=== PATIENT | female | born 1940 | race Caucasian/White ===

== ENCOUNTER 2016-02-11 08:14 | Inpatient (IN) | payer OTHER, BC ==
[~2016-02-11] VITALS: Ht 162.6 cm; Wt 69.4 kg
[~2016-02-11 08:14] MED LIST: ATOR-22 PO; CIPR-255 PO; DILT-115 PO; FURO-85 PO; GABA-112 PO; HYDR-5688 PO; INSUINJ12 SC; INSUINJ14 SC; LEVO88TA3 PO; VTMD PO
[2016-02-11] MEDS ORDERED: SODIUM CHLORIDE 0.9% 1000ML 1,000 ML IV STA (08:35)
[2016-02-11] MEDS ORDERED: ACETAMINOPHEN 500 MG TAB PO STA (08:35)
--- NOTE | 2016-02-11 09:33 | DIAGNOSTIC IMAGING REPORT ---
CT HEAD WITHOUT CONTRAST (CT) CLINICAL HISTORY: Head trauma. New onset weakness. COMPARISON STUDY: No previous studies for comparison. TECHNIQUE: Axial CT of the brain is performed from the vertex to the skull base. IV contrast was not administered for this examination. CT DOSE: 810.83 mGy.cm FINDINGS: No intra or extra-axial mass lesions are visualized. There is no CT evidence of acute cortical infarction. There is no evidence of midline shift. There is no acute hemorrhage. No calvarial fractures are visualized. There are minor white matter hypodensities likely on a small vessel basis. There is no evidence of pathologic ventricular dilatation. There is no evidence of acute sinusitis. Postsurgical changes involve the right globe. There is right maxillary sinus and ethmoid sinus mucosal thickening. IMPRESSION: No acute intracranial findings Electronically signed by: Barrera Romero M.D. 02/11/2016 9:31 AM
[2016-02-11 09:34] LABS: BASO % 0.4 %; BASO ABS # 0.04 K/uL (0-0.2); COMPLETE YES; IG% 0.5 %; LYMPH % 9.6 %; LYMPH ABS # 0.91 K/uL (1.2-3.4); MEAN CORPUSCULAR HEMOGLOBIN 29.5 pg (25-34); MEAN CORPUSCULAR HGB CONC 33.9 g/dl (32-36); MEAN PLATELET VOLUME 10.5 fL (7.4-10.4); MONO % 18.6 %; NEUT % 70.9 %; PLATELET COUNT 194 K/uL (130-400); RED BLOOD COUNT 4.71 M/uL (4.2-5.4); WHITE BLOOD COUNT 9.51 K/uL (4.8-10.8)
[2016-02-11 10:02] LABS: BUN/CREATININE RATIO 17.7 (10-20); CALCIUM 9.2 mg/dl (8.5-10.1); CREATININE 1.6 mg/dl (0.60-1.20); POTASSIUM 3.9 mmol/L (3.5-5.1)
[2016-02-11] MEDS ORDERED: GABA-113 PO (10:02)
[2016-02-11] MEDS ORDERED: LEVO75TA5 PO (10:04)
--- NOTE | 2016-02-11 10:08 | DIAGNOSTIC IMAGING REPORT ---
CHEST ONE VIEW PORTABLE CLINICAL HISTORY: Cough, hypoxia. COMPARISON STUDY: 09/06/2014 FINDINGS: The heart is enlarged. Surgical clips project over the left axillary region. There is no lobar consolidation. There is displaced right fourth rib fracture. No pneumothorax is visualized. There is interstitial thickening with a basilar predominance.[ IMPRESSION: 1. Nonspecific interstitial thickening with a basilar predominance 2. No evidence of lobar consolidation 3. Right fourth rib fracture. No evidence of pneumothorax. Electronically signed by: Barrera Romero M.D. 02/11/2016 10:06 AM
[2016-02-11 10:20] LABS: ALB/GLOB RATIO 0.9 (0.9-2); CKMB/CK RATIO 0.4 (0-3.0); MAGNESIUM 2.1 mg/dl (1.8-2.4); THYROID STIMULATING HORMONE 0.174 uIu/ml (0.300-4.500)
[2016-02-11 10:26] LABS: URINE APPEARANCE CLOUDY (CLEAR); URINE BILIRUBIN NEG (NEG); URINE COLOR YELLOW; URINE NITRITE POS (NEG); URINE SPECIFIC GRAVITY 1.013 (1.000-1.030); UROBILINOGEN NEG (NEG)
[2016-02-11 10:28] LABS: MANUAL MICROSCOPIC REQUIRED? NO; REVIEW REQ? NO
--- NOTE | 2016-02-11 10:37 | EMERGENCY ROOM VISIT NOTE ---
ED Visit Note First contact with patient: 08:17 I have personally seen and evaluated the patient with the physician senior executive assistant. I agree with the diagnostic/management decisions and have personally been involved in these decisions and agree with the diagnosis.
[2016-02-11] MEDS ORDERED: LEVAQUIN 500MG / 100ML D5W IV ONE (10:45)
--- NOTE | 2016-02-11 11:53 | EMERGENCY ROOM VISIT NOTE ---
History First contact with patient: 08:17 Chief Complaint: FALL Stated Complaint: FALL/ EVAL. NO TRAUMA History of Present Illness Patient is a 75-year-old white female brought to the emergency department by [facility] ambulance for evaluation of a fall at home this morning. She is difficult to obtain a clear history from. Patient reports that she was trying to get up without her walker when she was getting out of bed this morning and she fell down to the ground. She denies that she injured herself. She was on the ground for about an hour before EMS was summoned. She has no complaints of pain and does not believe that she hurt herself when she fell. Her complaint is that her right leg has been swollen for the last couple of weeks. She has had a intermittent, dry, nonproductive cough. She denies any cold or upper respiratory symptoms, fever or chills. She denies any nausea, vomiting, diarrhea or abdominal pain. She has chronic urinary incontinence, and does note increased urinary frequency. She apparently also had a fall yesterday, she states again she lost her balance while trying to move around her home. EMS was summoned and helped her at the scene, but she refused treatment or transport at that time. She denies any headache, lightheadedness or dizziness. No back, neck or chest pain. She denies any palpitations. She was seen here last month after a fall, and found to have a UTI which was treated with Cipro. She grew Escherichia coli at that time. Review of Systems Review of systems as per HPI. All other systems reviewed were negative. 10 systems reviewed. Past Medical/Surgical History Medical Problems: (1) Diabetes (2) Fall (3) Hyperlipidemia, Unspecified (4) Hypertension (5) Hypothyroidism Nos (6) Left leg pain (7) Leg pain, left (8) Lumbar degenerative disc disease (9) Medication withdrawal (10) Rhabdomyolysis (11) Right rib fracture (12) UTI (urinary tract infection) Surgical Problems: (1) History of breast cancer (2) History of lumbar fusion (3) History of mastectomy Electronic medical records are reviewed and summarized as above/below. See Problem List. Family History Cancer Diabetes mellitus Heart disease Hypertension Kidney stones Social History Smoking Status: Never Smoker Alcohol Use: none Drug Use: none Marital Status: Occupation Status: retired Current/Historical Medications Scheduled Atorvastatin (Lipitor), 20 MG PO QPM Diltiazem Hcl Ext Rel (Tiazac), 240 MG PO QAM Ergocalciferol (Vitamin D), 50,000 INTER.UNIT PO MONTHLY Gabapentin (Neurontin), 300 MG PO TID Insulin Aspart Penfill (Novolog Penfill), 2 UNITS SC UD Insulin Detmir (Levemir), 12 UNITS SC QAM Levothyroxine Sodium (Levothyroxine Sodium), 88 MCG PO DAILY Levothyroxine Sodium (Levothyroxine Sodium), 75 MCG PO DAILY Scheduled PRN Furosemide (Lasix), 20 MG PO QAM PRN for EDEMA Hydrocodone/Acetaminophen 5MG/325MG (Ragan 5MG/325MG), 1-2 TABS PO Q6H PRN for Pain Allergies Coded Allergies: Penicillins (Verified Adverse Reaction, Unknown, PT CLAIMS PCN DOESN'T WORK, 12/27/15) PT CLAIMS SHE HAS BUILT UP RESISTANCE TO PCN - IT "DOESN'T WORK" Physical Exam Vital Signs Date Time Temp Pulse Resp B/P Pulse Ox O2 Delivery O2 Flow Rate FiO2 02/11/16 14:45 100 Nasal Cannula 3.0 02/11/16 13:40 63 16 130/66 100 Room Air 02/11/16 11:34 89 Room Air 02/11/16 11:33 89 Room Air 02/11/16 10:50 74 20 138/79 98 Nasal Cannula 3.0 02/11/16 09:56 37.1 80 22 122/61 98 Nasal Cannula 3.0 02/11/16 08:52 83 20 152/79 93 Nasal Cannula 3.0 02/11/16 08:32 90 02/11/16 08:27 94 Nasal Cannula 3.0 02/11/16 08:27 94 Nasal Cannula 3.0 02/11/16 08:26 38.2 97 20 157/84 86 Room Air Physical Exam CONSTITUTIONAL: Patient is a slightly disheveled appearing 75-year-old white female who is awake and alert and in no acute distress. She is examined immediately upon arrival in the room B 12. She was assisted into a gown and out of a saturated Depends by the nursing staff. Urine was very foul-smelling. She was noted to be febrile with a temperature of 38.2C orally, and hypoxic with an oxygen saturation between 84 and 86% on room air. She responded nicely to 2 L by nasal cannula. She was normotensive. She was not tachycardic. She is otherwise in no acute distress with no increased work of breathing. HEAD: Normocephalic, no signs of injury or scalp lesions. EYES: Pupils equal, round, reactive to light and accommodation. EOMs intact without nystagmus. Sclera are anicteric. ENT: Tympanic membranes intact, with normal landmarks. External canals are clear. Hearing. Oral and nasopharynx are clear. Mucous membranes are moist, no lesions, tongue and gums appear normal. NECK: No bruits auscultated. Supple without lymphadenopathy. No thyromegaly. No meningeal signs. Full active range of motion without discomfort. CARDIOVASCULAR: Regular rate and rhythm, systolic ejection murmur noted. No carotid bruits auscultated. No JVD. Peripheral pulses easy to palpable. RESPIRATORY: Breath sounds equal and clear to auscultation without wheezes, rales, or rhonchi heard. Full and equal chest expansion without accessory muscle use or retractions. Well-healed surgical scars breast. GI: Bowel sounds are present. Multiple well-healed surgical scars. Abdomen is soft, nontender, nondistended. No organomegaly. No pulsatile masses. No guarding or rebound. MUSCULOSKELETAL: Pelvis is stable to rock and compression. Full range of motion of extremities x 4 with good strength. No cyanosis, edema, joint tenderness or swelling. No deformity. INTEGUMENTARY: No lesions or rash, normal skin turgor. NEUROLOGICAL: Alert, oriented, and cooperative. Cranial nerves, sensation and strength grossly intact. Gait is unable to be assessed. LYMPH: No lymphadenopathy. Medical Decision & Procedures ER Provider Diagnostic Interpretation: CHEST ONE VIEW PORTABLE CLINICAL HISTORY: Cough, hypoxia. COMPARISON STUDY: 09/06/2014 FINDINGS: The heart is enlarged. Surgical clips project over the left axillary region. There is no lobar consolidation. There is displaced right fourth rib fracture. No pneumothorax is visualized. There is interstitial thickening with a basilar predominance.[ IMPRESSION: 1. Nonspecific interstitial thickening with a basilar predominance 2. No evidence of lobar consolidation 3. Right fourth rib fracture. No evidence of pneumothorax. CT HEAD WITHOUT CONTRAST (CT) CLINICAL HISTORY: Head trauma. New onset weakness. COMPARISON STUDY: No previous studies for comparison. TECHNIQUE: Axial CT of the brain is performed from the vertex to the skull base. IV contrast was not administered for this examination. CT DOSE: 810.83 mGy.cm FINDINGS: No intra or extra-axial mass lesions are visualized. There is no CT evidence of acute cortical infarction. There is no evidence of midline shift. There is no acute hemorrhage. No calvarial fractures are visualized. There are minor white matter hypodensities likely on a small vessel basis. There is no evidence of pathologic ventricular dilatation. There is no evidence of acute sinusitis. Postsurgical changes involve the right globe. There is right maxillary sinus and ethmoid sinus mucosal thickening. IMPRESSION: No acute intracranial findings Laboratory Results 02/11/16 09:00 Red Blood Count 4.71, Mean Corpuscular Volume 87.0, Mean Corpuscular Hemoglobin 29.5, Mean Corpuscular Hemoglobin Concent 33.9, Mean Platelet Volume 10.5, Neutrophils (%) (Auto) 70.9, Lymphocytes (%) (Auto) 9.6, Monocytes (%) (Auto) 18.6, Eosinophils (%) (Auto) 0.0, Basophils (%) (Auto) 0.4, Neutrophils # (Auto ) 6.74, Lymphocytes # (Auto) 0.91, Monocytes # (Auto) 1.77, Eosinophils # (Auto ) 0.00, Basophils # (Auto) 0.04 02/11/16 09:00 Test 02/11/16 08:40 02/11/16 09:00 02/11/16 09:09 02/11/16 10:50 Urine Color YELLOW Urine Appearance CLOUDY (CLEAR) Urine pH 6.0 (4.5-7.5) Urine Specific [place] 1.013 (1.000-1.030) Urine Protein 1+ (NEG) Urine Glucose (UA) NEG (NEG) Urine Ketones NEG (NEG) Urine Occult Blood 1+ (NEG) Urine Nitrite POS (NEG) Urine Bilirubin NEG (NEG) Urine Urobilinogen NEG (NEG) Urine Leukocyte Esterase LARGE (NEG) Urine WBC (Auto) >30 /hpf (0-5) Urine RBC (Auto) 0-4 /hpf (0-4) Urine Hyaline Casts (Auto) 1-5 /lpf (0-5) Urine Epithelial Cells (Auto) 5-10 /lpf (0-5) Urine Bacteria (Auto) 4+ (NEG) White Blood Count 9.51 K/uL (4.8-10.8) Red Blood Count 4.71 M/uL (4.2-5.4) Hemoglobin 13.9 g/dL (12.0-16.0) Hematocrit 41.0 % (37-47) Mean Corpuscular Volume 87.0 fL (80-100) Mean Corpuscular Hemoglobin 29.5 pg (25-34) Mean Corpuscular Hemoglobin Concent 33.9 g/dl (32-36) Platelet Count 194 K/uL (130-400) Mean Platelet Volume 10.5 fL (7.4-10.4) Neutrophils (%) (Auto) 70.9 % Lymphocytes (%) (Auto) 9.6 % Monocytes (%) (Auto) 18.6 % Eosinophils (%) (Auto) 0.0 % Basophils (%) (Auto) 0.4 % Neutrophils # (Auto) 6.74 K/uL (1.4-6.5) Lymphocytes # (Auto) 0.91 K/uL (1.2-3.4) Monocytes # (Auto) 1.77 K/uL (0.11-0.59) Eosinophils # (Auto) 0.00 K/uL (0-0.5) Basophils # (Auto) 0.04 K/uL (0-0.2) RDW Standard Deviation 45.7 fL (36.4-46.3) RDW Coefficient of Variation 14.3 % (11.5-14.5) Immature Granulocyte % (Auto) 0.5 % Immature Granulocyte # (Auto) 0.05 K/uL (0.00-0.02) Anion Gap 9.0 mmol/L (3-11) Est Creatinine Clear Calc Drug Dose 29.1 ml/min Estimated GFR () 36.2 Estimated GFR (Non- 31.2 BUN/Creatinine Ratio 17.7 (10-20) Calcium Level 9.2 mg/dl (8.5-10.1) Magnesium Level 2.1 mg/dl (1.8-2.4) Total Bilirubin 0.9 mg/dl (0.2-1) Aspartate Amino Transf (AST/SGOT) 63 U/L (15-37) Alanine Aminotransferase (ALT/SGPT) 31 U/L (12-78) Alkaline Phosphatase 106 U/L (45-117) Total Creatine Kinase 1446 U/L (26-192) Creatine Kinase MB 6.2 ng/ml (0.5-3.6) Creatine Kinase MB Ratio 0.4 (0-3.0) Total Protein 7.8 gm/dl (6.4-8.2) Albumin 3.7 gm/dl (3.4-5.0) Globulin 4.1 gm/dl (2.5-4.0) Albumin/Globulin Ratio 0.9 (0.9-2) Thyroid Stimulating Hormone (TSH) 0.174 uIu/ml (0.300-4.500) Bedside Lactic Acid Venous 1.04 mmol/L (0.90-1.70) Influenza Type A Antigen POS for Influ A (NEG) Influenza Type B Antigen Neg for Influ B (NEG) Medications Administered Medications (Trade) Dose Ordered Sig/Erich Route Start Time Stop Time Status Last Admin Dose Admin Acetaminophen 1000 mg 1,000 mg NOW STAT PO 02/11/16 08:35 02/11/16 08:41 DC 02/11/16 08:50 1,000 MG Sodium Chloride (Nss 1000ml) 1,000 ml @ 125 mls/hr Q8H STAT IV 02/11/16 08:35 02/11/16 16:34 02/11/16 09:55 125 MLS/HR Levofloxacin (Levaquin / D5W) 500 mg NOW ONCE IV 02/11/16 10:45 02/11/16 10:46 DC 02/11/16 10:49 500 MG ECG Indication: weakness, other (hypoxia) Rate (beats per minute): 84 Rhythm: sinus rhythm Findings: PVC, no acute ischemic change Change: no significant change ED Course The patient was seen and assessed as above. Her old records are reviewed. She presents the emergency department with little complaints, other than lower extremity edema, however has been experiencing falls recently, and upon evaluation she was noted to be febrile and hypoxic. Exam findings were otherwise unremarkable. She is placed on a electronic device monitor, IV access was obtained and laboratory studies were collected. She was cathed for a urine sample. She was given 1 g of Tylenol orally for her low-grade fever, and gently hydrated with normal saline solution. Laboratory studies were collected including CBC with differential, mag, CMP, TSH, CK/CK-MB, [id number] BNP, troponin and lactic acid, urinalysis, urine culture and blood cultures 2. After discussion with attending physician, influenza swab was also ordered. Given the recent falls and possibility of trauma, head CT was performed, which was negative. Given the fever and hypoxia, chest x-ray was performed, which did not show any evidence for focal consolidation. For [id number] lactic acid was not elevated. Troponin was negative 1. Her BNP is not indicative of CHF. CBC did not demonstrate leukocytosis or anemia. Chemistries did not demonstrate any correctable electrolyte imbalance. She does have a slight elevation of her BUN and creatinine at 28 and 1.6 respectively, however she does have a history of chronic kidney disease, and this does appear stable compared to her most recent labs from August of this year. Urinalysis is indicative of infection with 1+ blood, positive nitrates, large amount of leukocyte esterase and WBCs and 4+ bacteria. Urine culture is ordered and is pending. Blood cultures 2 are pending. Influenza swab which was ordered later, did come back positive for influenza A. Attempts were made to wean the patient off of oxygen, but she dropped to 89% as soon as the oxygen was removed. She was ultimately requiring 3 L to stay at 100%. All laboratory and diagnostic imaging studies were reviewed with attending physician. She was given Levaquin 500 mg IV for presumed UTI, possible pyelonephritis or urosepsis. Her influenza swab was later resulted as positive , which is likely the source of her hypoxia and fever. Differential diagnoses also entertained included CVA/TIA, acute intracranial bleed, and respiratory dysfunction, electrolyte imbalance, arrhythmia, ACS, acute PR, sepsis, hypotension, hypoglycemia, orthostasis, syncope, among others. The patient was reviewed with the emergency department director case management. The patient's came to visit with her, and ultimately ended up checking himself in to be evaluated, and was admitted. There is some concern regarding the ability of these 2 patients to be able to care for themselves appropriately at home, and the director case management will be evaluating this while the couple are admitted. Please refer to the home health care case manager notes for further information. Medical Decision See ED Course. Impression Primary Impression: Influenza A Additional Impressions: UTI (urinary tract infection), Weakness, Frequent falls, Hypoxia Departure Information Referrals Prabhakar Jean M.D. (PCP) Patient Instructions A Signature Page, [facility]
[2016-02-11] MEDS ORDERED: OSELTAMIVIR PHOSPHATE 75 MG CAP PO SCH (12:30)
[2016-02-11] MEDS ORDERED: ACETAMINOPHEN 325 MG TAB PO PRN (13:15)
[2016-02-11] MEDS ORDERED: ONDANSETRON INJ 2 MG/ML 2 ML VIAL IV PRN (13:15)
[2016-02-11] MEDS ORDERED: HYDROCODONE/ACETAMOPHEN 5/325MG TAB PO PRN (13:15)
[2016-02-11 14:45] VITALS: O2SAT 100; Ht 162.6 cm; Wt 69.4 kg
[2016-02-11] MEDS ORDERED: IV FLUIDS COMPLETED PRN (14:45)
--- NOTE | 2016-02-11 16:19 | History and Physical ---
History & Physical Date & Time of Service: Feb 11, 2016 at 16:12 Chief Complaint: Fall/ Eval. No Trauma Primary Care Physician: Prabhakar Jean M.D. History of Present Illness Source: patient 75 yo female with weakness, chills and two falls today. She says she was in usual state of health until past 48 hours when she was experiencing more weakness, decreased appetite, low grade temperature. After she fell a second time her called EMS. No loss of consciousness with falls, no head trauma. No sick contacts that she knows of. She denies diarrhea, vomiting, dyspnea, cough. In the ED there were concerns of hypoxia with 89% on room air but on repeat she was 94% and in no distress and saturations were stable with ambulation. Decided to keep patient because of falls, mild rhabdomyolysis and no one at home to take care of her. Past Medical/Surgical History Medical Problems: (1) Diabetes Status: Chronic (2) Fall Status: Resolved (3) Hyperlipidemia, Unspecified Status: Chronic (4) Hypertension Status: Chronic (5) Hypothyroidism Nos Status: Chronic (6) Left leg pain Status: Resolved (7) Leg pain, left Status: Resolved (8) Lumbar degenerative disc disease Status: Chronic (9) Medication withdrawal Status: Resolved (10) Right rib fracture Status: Resolved (11) UTI (urinary tract infection) Status: Resolved Surgical Problems: (1) History of breast cancer Status: Resolved (2) History of lumbar fusion Status: Resolved (3) History of mastectomy Status: Resolved Family History Cancer Diabetes mellitus Heart disease Hypertension Kidney stones Social History Smoking Status: Never Smoker Drug Use: none Marital Status: Housing status: lives with family Occupational Status: employed Immunizations History of Influenza Vaccine: Yes Influenza Vaccine Date: Nov 26, 2010 History of Tetanus Vaccine?: Yes Tetanus Immunization Date: May 27, 2008 History of Pneumococcal: Yes Pneumococcal Date: Nov 26, 2009 History of Hepatitis B Vaccine: No Multi-Drug Resistant Organisms History of MDRO: No Allergies Coded Allergies: Penicillins (Verified Adverse Reaction, Unknown, PT CLAIMS PCN DOESN'T WORK, 12/27/15) PT CLAIMS SHE HAS BUILT UP RESISTANCE TO PCN - IT "DOESN'T WORK" Home Medications Scheduled Atorvastatin (Lipitor), 20 MG PO QPM Diltiazem Hcl Ext Rel (Tiazac), 240 MG PO QAM Ergocalciferol (Vitamin D), 50,000 INTER.UNIT PO MONTHLY Gabapentin (Neurontin), 300 MG PO TID Insulin Aspart Penfill (Novolog Penfill), 2 UNITS SC UD Insulin Detmir (Levemir), 12 UNITS SC QAM Levothyroxine Sodium (Levothyroxine Sodium), 88 MCG PO DAILY Levothyroxine Sodium (Levothyroxine Sodium), 75 MCG PO DAILY Scheduled PRN Furosemide (Lasix), 20 MG PO QAM PRN for EDEMA Hydrocodone/Acetaminophen 5MG/325MG ([place] 5MG/325MG), 1-2 TABS PO Q6H PRN for Pain Review of Systems Constitutional: + chills, + fatigue, + fever, + weakness, No sweats, No weight loss Eyes: No diplopia, No discharge, No eye pain, No problem reported, No redness, No worsening of vision ENT: No dental problems, No hearing loss, No nasal symptoms, No problem reported, No sore throat, No tinnitus, No trouble swallowing, No unusual epistaxis Respiratory: No cough, No dyspnea at rest, No dyspnea on exertion, No hemoptysis, No problem reported, No shortness of breath, No sputum, No wheezing Cardiovascular: No PND, No chest pain, No claudication, No edema, No orthopnea , No palpitations, No problem reported Abdomen: No GI bleeding, No constipation, No diarrhea, No nausea, No pain, No problem reported, No vomiting Musculoskeletal: + joint pain, No muscle pain Genitourinary - Female: + urinary incontinence, No dysuria, No urinary frequency, No urinary retention, No urinary urgency Neurologic: + balance problems, + weakness, No memory loss, No numbness/ tingling, No paralysis, No vertigo Psychiatric: No anhedonism, No anxiety, No depression symptoms, No insomnia, No problem reported, No substance abuse Endocrine: No excessive thirst, No excessive urination, No fatigue, No problem reported Hematologic / Lymphatic: No abnormal bleeding/bruising, No clotting problems, No night sweats, No problem reported, No swollen lymph nodes Integumentary: No bleeding, No color change, No itch, No new/changing skin lesions, No problem reported, No rash Allergic / Immunologic: No environmental allergies, No food allergies, No frequent infections, No hives, No pet sensitivities, No poor healing, No problem reported, No prolonged convalescence, No seasonal allergies Physical Exam Vital Signs Date Time Temp Pulse Resp B/P Pulse Ox O2 Delivery O2 Flow Rate FiO2 02/11/16 14:45 100 Nasal Cannula 3.0 02/11/16 13:40 63 16 130/66 100 Room Air 02/11/16 11:34 89 Room Air 02/11/16 11:33 89 Room Air 02/11/16 10:50 74 20 138/79 98 Nasal Cannula 3.0 02/11/16 09:56 37.1 80 22 122/61 98 Nasal Cannula 3.0 02/11/16 08:52 83 20 152/79 93 Nasal Cannula 3.0 02/11/16 08:32 90 02/11/16 08:27 94 Nasal Cannula 3.0 02/11/16 08:27 94 Nasal Cannula 3.0 02/11/16 08:26 38.2 97 20 157/84 86 Room Air General Appearance: WD/WN, no apparent distress Head: normocephalic, atraumatic Eyes: normal inspection, EOMI, sclerae normal ENT: normal ENT inspection, hearing grossly normal, pharynx normal Neck: supple, no adenopathy, no JVD, trachea midline Respiratory/Chest: chest non-tender, lungs clear, normal breath sounds, no respiratory distress, no accessory muscle use Cardiovascular: regular rate, rhythm, no edema, no gallop, no JVD, no murmur, normal peripheral pulses Abdomen/GI: normal bowel sounds, non tender, soft, no organomegaly Back: normal inspection, no CVA tenderness, no muscle spasm, normal range of motion Extremities/Musculoskelatal: normal inspection, no calf tenderness, normal capillary refill, no pedal edema, normal range of motion 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, alert, normal mood/affect, normal reflexes, oriented x 3, + abnormal gait (shuffling, narrow based), + motor weakness (generalized) Skin: normal color, warm/dry, no rash Diagnostics Laboratory Results Results Past 24 Hours Test 02/11/16 08:40 02/11/16 09:00 02/11/16 09:09 02/11/16 10:50 Range/Units Urine Color YELLOW Urine Appearance CLOUDY CLEAR Urine pH 6.0 4.5-7.5 Urine Specific [place] 1.013 1.000-1.030 Urine Protein 1+ NEG Urine Glucose (UA) NEG NEG Urine Ketones NEG NEG Urine Occult Blood 1+ NEG Urine Nitrite POS NEG Urine Bilirubin NEG NEG Urine Urobilinogen NEG NEG Urine Leukocyte Esterase LARGE NEG Urine WBC (Auto) >30 0-5 /hpf Urine RBC (Auto) 0-4 0-4 /hpf Urine Hyaline Casts (Auto) 1-5 0-5 /lpf Urine Epithelial Cells (Auto) 5-10 0-5 /lpf Urine Bacteria (Auto) 4+ NEG White Blood Count 9.51 4.8-10.8 K/uL Red Blood Count 4.71 4.2-5.4 M/uL Hemoglobin 13.9 12.0-16.0 g/dL Hematocrit 41.0 37-47 % Mean Corpuscular Volume 87.0 80-100 fL Mean Corpuscular Hemoglobin 29.5 25-34 pg Mean Corpuscular Hemoglobin Concent 33.9 32-36 g/dl Platelet Count 194 130-400 K/uL Mean Platelet Volume 10.5 7.4-10.4 fL Neutrophils (%) (Auto) 70.9 % Lymphocytes (%) (Auto) 9.6 % Monocytes (%) (Auto) 18.6 % Eosinophils (%) (Auto) 0.0 % Basophils (%) (Auto) 0.4 % Neutrophils # (Auto) 6.74 1.4-6.5 K/uL Lymphocytes # (Auto) 0.91 1.2-3.4 K/uL Monocytes # (Auto) 1.77 0.11-0.59 K/uL Eosinophils # (Auto) 0.00 0-0.5 K/uL Basophils # (Auto) 0.04 0-0.2 K/uL RDW Standard Deviation 45.7 36.4-46.3 fL RDW Coefficient of Variation 14.3 11.5-14.5 % Immature Granulocyte % (Auto) 0.5 % Immature Granulocyte # (Auto) 0.05 0.00-0.02 K/uL Sodium Level 137 136-145 mmol/L Potassium Level 3.9 3.5-5.1 mmol/L Chloride Level 98 98-107 mmol/L Carbon Dioxide Level 30 21-32 mmol/L Anion Gap 9.0 3-11 mmol/L Blood Urea Nitrogen 28 7-18 mg/dl Creatinine 1.60 0.60-1.20 mg/dl Est Creatinine Clear Calc Drug Dose 29.1 ml/min Estimated GFR () 36.2 Estimated GFR (Non- 31.2 BUN/Creatinine Ratio 17.7 10-20 Random Glucose 100 70-99 mg/dl Calcium Level 9.2 8.5-10.1 mg/dl Magnesium Level 2.1 1.8-2.4 mg/dl Total Bilirubin 0.9 0.2-1 mg/dl Aspartate Amino Transf (AST/SGOT) 63 15-37 U/L Alanine Aminotransferase (ALT/SGPT) 31 12-78 U/L Alkaline Phosphatase 106 45-117 U/L Total Creatine Kinase 1446 26-192 U/L Creatine Kinase MB 6.2 0.5-3.6 ng/ml Creatine Kinase MB Ratio 0.4 0-3.0 Total Protein 7.8 6.4-8.2 gm/dl Albumin 3.7 3.4-5.0 gm/dl Globulin 4.1 2.5-4.0 gm/dl Albumin/Globulin Ratio 0.9 0.9-2 Thyroid Stimulating Hormone (TSH) 0.174 0.300-4.500 uIu/ml Bedside Lactic Acid Venous 1.04 0.90-1.70 mmol/L Influenza Type A Antigen POS for Influ A NEG Influenza Type B Antigen Neg for Influ B NEG Microbiology Results 02/11/16 Blood Culture, Received Pending 02/11/16 Blood Culture, Received Pending 02/11/16 Urine Culture, Received Pending Diagnostic Radiology CXR: right fourth rib fracture CT head: normal Impression Assessment and Plan 75 yo female with weakness, falls due to influenza, dehydration, possible UTI and mild rhabdomyolysis - Rhabdomyolysis: NSS at 100cc/hr, repeat CK in AM and BMP - CKD stage III/IV: stable, repeat in AM, NSS - Dehydration: NSS - Frequent falls: PT/OT consultation - Influenza: Tamiflu, supportive care - HTN: continue home medications try to d/c home tomorrow if stronger Level of Care Med/Surg Advanced Directives Existing Advance Directive: No Existing Living Will: No Existing Power of Belt Cleaner: No Resuscitation Status FULL RESUSCITATION VTE Prophylaxis VTE Risk Assessment Done? Y/N: Yes Risk Level: High Given or contraindicated: Unfractionated heparin SQ Additional Copies To Prabhakar Jean M.D.
[2016-02-11 16:27] VITALS: BP 118/67; PULSE 59; TEMP 37; O2SAT 98
[2016-02-11] MEDS: INSULIN ASPART 100 UNITS/ML 3 ML PEN SC SCH ×2 (16:30→21:00)
[2016-02-11] MEDS ORDERED: DEXTROSE 50% 50 ML SYR IV PRN (16:45)
[2016-02-11] MEDS ORDERED: GLUCOSE 10 TABS/TUBE PO PRN (16:45)
[2016-02-11] MEDS ORDERED: GLUCAGON FOR INJ 1 MG VIAL SQ PRN (16:45)
[2016-02-11] MEDS ORDERED: GLUCOSE 40% GEL 15 GM TUBE PO PRN (16:45)
[2016-02-11] MEDS ORDERED: SODIUM CHLORIDE 0.9% 1000ML 1,000 ML IV SCH (17:00)
[2016-02-11 17:15] LABS: INR 1.1 (0.9-1.1); PROTHROMBIN TIME (PATIENT) 11.4 SECONDS (9.0-12.0)
[2016-02-11 17:41] VITALS: O2SAT 96
[2016-02-11] MEDS: OSELTAMIVIR PHOSPHATE SUSP 30 MG/5 ML UDP PO SCH (20:58)
[2016-02-11] MEDS: GABAPENTIN 300 MG CAP PO SCH (21:00)
[2016-02-11] MEDS: HEPARIN SOD 5000 UNIT/0.5 ML CARP SQ SCH (21:03)
[2016-02-11 23:17] VITALS: BP 130/64; PULSE 66; TEMP 36.8; O2SAT 95
[2016-02-12] MEDS: HEPARIN SOD 5000 UNIT/0.5 ML CARP SQ SCH ×3 (06:01→20:11)
[2016-02-12 07:41] LABS: BASO % 0.8 %; BASO ABS # 0.05 K/uL (0-0.2); COMPLETE YES; HEMATOCRIT 37.5 % (37-47); IG% 0.8 %; LYMPH % 20.3 %; LYMPH ABS # 1.24 K/uL (1.2-3.4); MEAN CELL VOLUME 88.4 fL (80-100); MEAN CORPUSCULAR HEMOGLOBIN 29.5 pg (25-34); MEAN CORPUSCULAR HGB CONC 33.3 g/dl (32-36); MEAN PLATELET VOLUME 10.7 fL (7.4-10.4); MONO % 19.1 %; PLATELET COUNT 182 K/uL (130-400); RED BLOOD COUNT 4.24 M/uL (4.2-5.4); WHITE BLOOD COUNT 6.11 K/uL (4.8-10.8)
[2016-02-12 08:02] VITALS: BP 108/65; PULSE 66; TEMP 37; O2SAT 98
[2016-02-12] MEDS: GABAPENTIN 300 MG CAP PO SCH ×3 (08:12→20:06)
[2016-02-12] MEDS: DILTIAZEM HCL 120 MG EXT REL CAP PO SCH (08:12)
[2016-02-12 08:15] LABS: BUN/CREATININE RATIO 24.8 (10-20); CALCIUM 8.4 mg/dl (8.5-10.1); CREATININE 1.2 mg/dl (0.60-1.20); POTASSIUM 4.1 mmol/L (3.5-5.1)
[2016-02-12] MEDS: INSULIN ASPART 100 UNITS/ML 3 ML PEN SC SCH ×4 (08:50→20:12)
[2016-02-12] MEDS: INSULIN DETEMIR FLEXPEN/FLEX TOUCH 100 UNITS/ML 3ML SC SCH (08:56)
[2016-02-12] MEDS ORDERED: LEVOTHYROXINE 75 MCG TAB PO SCH (09:00)
[2016-02-12] MEDS ORDERED: NURSING DECISION MEDICATION ORDER SCH (09:30)
[2016-02-12] MEDS: LEVOFLOXACIN 250 MG TAB PO SCH (11:19)
[2016-02-12 15:00] VITALS: BP 130/71; PULSE 60; TEMP 37.5; O2SAT 95
--- NOTE | 2016-02-12 15:04 | Progress Note ---
Subjective Date of Service: Feb 12, 2016. Subjective Pt evaluation today including: conversation w/ patient, conversation w/ family , physical exam, lab review, review of inpatient medication list Pain: no pain PO Intake: poor appetite Voiding: no voiding problems patient feels slightly stronger compared to yesterday not eating very well breathing stable, no cough today hospitalized in the same room for influenza, he is not being d/c today Problem List Medical Problems: (1) Diabetes Status: Chronic (2) Frequent falls Status: Acute (3) Hyperlipidemia, Unspecified Status: Chronic (4) Hypertension Status: Chronic (5) Hypothyroidism Nos Status: Chronic (6) Hypoxia Status: Acute (7) Influenza A Status: Acute (8) Lumbar degenerative disc disease Status: Chronic (9) Weakness Status: Acute Review of Systems Constitutional: + fatigue, + weakness Respiratory: + cough Neurologic: + balance problems, + weakness All Other Systems: Reviewed and Negative Medications Current Inpatient Medications Medications (Trade) Dose Ordered Sig/Erich Route Start Time Stop Time Status Last Admin Dose Admin Heparin Sodium (Porcine) (Heparin Sq 5000 Unit/0.5ml) 5,000 unit Q8 SQ 02/11/16 22:00 03/12/16 21:59 02/12/16 14:27 5,000 UNIT Acetaminophen (Tylenol Tab) 650 mg Q4H PRN PO 02/11/16 13:15 03/12/16 13:14 Ondansetron HCl (Zofran Inj) 4 mg Q6H PRN IV 02/11/16 13:15 03/12/16 13:14 Oseltamivir Phosphate (Tamiflu Susp) 30 mg QPM PO 02/11/16 18:00 02/16/16 20:59 02/11/16 20:58 30 MG Levofloxacin (Levaquin Tab) 250 mg DAILY@11 PO 02/12/16 11:00 02/21/16 10:59 02/12/16 11:19 250 MG Diltiazem HCl (TIAzac CAP) 240 mg QAM PO 02/12/16 09:00 03/13/16 08:59 02/12/16 08:12 240 MG Gabapentin (Neurontin Cap) 300 mg TID PO 02/11/16 21:00 03/12/16 20:59 02/12/16 14:27 300 MG Acetaminophen/ Hydrocodone Bitart ([place] 5/325 Tab) 1 tab Q6H PRN PO 02/11/16 13:15 02/25/16 13:14 Insulin Detemir (Levemir Flexpen/ FlexTouch) 12 unit QAM SC 02/12/16 09:00 03/13/16 08:59 02/12/16 08:56 12 UNIT Insulin Aspart (novoLOG ASPART) SLIDING SCALE G... ACHS SC 02/11/16 16:00 03/12/16 15:59 Miscellaneous (Iv Fluids Completed) 1 ea PRN PRN N/A 02/11/16 14:45 02/10/17 14:44 Glucose (Glucose 40% Gel) 15-30 GRAMS 15 GRAMS... UD PRN PO 02/11/16 16:45 03/12/16 16:44 Glucose (Glucose Chew Tab) 4-8 Tablets 4 Tabl... UD PRN PO 02/11/16 16:45 03/12/16 16:44 Dextrose (Dextrose 50% 50ML Syringe) 25-50ML OF 50% DW IV FOR... UD PRN IV 02/11/16 16:45 03/12/16 16:44 Glucagon (Glucagon Inj) 1 mg UD PRN SQ 02/11/16 16:45 03/12/16 16:44 Levothyroxine Sodium (Synthroid Tab) 75 mcg DAILY@0630 PO 02/13/16 06:30 03/14/16 06:29 Objective Vital Signs Date Time Temp Pulse Resp B/P Pulse Ox O2 Delivery O2 Flow Rate FiO2 02/12/16 08:45 Nasal Cannula 2.0 02/12/16 08:02 37.0 66 16 108/65 98 Nasal Cannula 2.0 02/11/16 23:45 Nasal Cannula 2.0 02/11/16 23:17 36.8 66 20 130/64 95 Nasal Cannula 2.0 02/11/16 17:41 96 Nasal Cannula 2.0 02/11/16 16:27 37.0 59 18 118/67 98 Room Air Physical Exam General Appearance: WD/WN, no apparent distress Eyes: normal inspection, EOMI, sclerae normal ENT: normal ENT inspection, hearing grossly normal, pharynx normal Neck: supple, no adenopathy, no JVD, trachea midline Respiratory/Chest: chest non-tender, lungs clear, normal breath sounds, no respiratory distress, no accessory muscle use Cardiovascular: regular rate, rhythm, no edema, no gallop, no JVD, no murmur Abdomen: normal bowel sounds, non tender, soft, no organomegaly Extremities: normal range of motion, non-tender, normal inspection, no pedal edema, no calf tenderness 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, alert, normal mood/affect, oriented x 3, + abnormal gait, + motor weakness (generalized) Skin: normal color, warm/dry, no rash Laboratory Results Last 24 Hours Test 02/11/16 16:43 02/11/16 20:07 02/12/16 07:11 02/12/16 07:42 Bedside Glucose 80 mg/dl 95 mg/dl 82 mg/dl White Blood Count 6.11 K/uL Red Blood Count 4.24 M/uL Hemoglobin 12.5 g/dL Hematocrit 37.5 % Mean Corpuscular Volume 88.4 fL Mean Corpuscular Hemoglobin 29.5 pg Mean Corpuscular Hemoglobin Concent 33.3 g/dl Platelet Count 182 K/uL Mean Platelet Volume 10.7 fL Neutrophils (%) (Auto) 58.0 % Lymphocytes (%) (Auto) 20.3 % Monocytes (%) (Auto) 19.1 % Eosinophils (%) (Auto) 1.0 % Basophils (%) (Auto) 0.8 % Neutrophils # (Auto) 3.54 K/uL Lymphocytes # (Auto) 1.24 K/uL Monocytes # (Auto) 1.17 K/uL Eosinophils # (Auto) 0.06 K/uL Basophils # (Auto) 0.05 K/uL RDW Standard Deviation 46.5 fL RDW Coefficient of Variation 14.4 % Immature Granulocyte % (Auto) 0.8 % Immature Granulocyte # (Auto) 0.05 K/uL Sodium Level 140 mmol/L Potassium Level 4.1 mmol/L Chloride Level 104 mmol/L Carbon Dioxide Level 26 mmol/L Anion Gap 10.0 mmol/L Blood Urea Nitrogen 30 mg/dl Creatinine 1.20 mg/dl Est Creatinine Clear Calc Drug Dose 38.8 ml/min Estimated GFR () 51.2 Estimated GFR (Non- 44.2 BUN/Creatinine Ratio 24.8 Random Glucose 72 mg/dl Calcium Level 8.4 mg/dl Magnesium Level 2.0 mg/dl Total Creatine Kinase 1176 U/L Test 02/12/16 11:18 Bedside Glucose 85 mg/dl Assessment and Plan 75 yo female with weakness, falls due to influenza, dehydration, possible UTI and mild rhabdomyolysis - Rhabdomyolysis: will give an additional 500cc today, CK still above 1000, adequate UO, renal function stable - CKD stage III/IV: stable, Cr down slightly to 1.2, give an additional 500cc NSS, repeat labs in AM - Dehydration: nearly resolved, eating and drinking better today - UTI: culture growing E coli, continue Levaquin, follow culture results, no signs of sepsis - Frequent falls: PT/OT consultation, still weak today - Influenza: Tamiflu, supportive care - HTN: continue home medications hopeful for d/c to home tomorrow, depends on therapy notes, also, is still admitted and they live today, take care of one another
[2016-02-12] MEDS ORDERED: SODIUM CHLORIDE 0.9% 500ML 500 ML IV SCH (15:15)
[2016-02-12 19:09] VITALS: BP 116/68; PULSE 70; TEMP 37; O2SAT 90
[2016-02-12] MEDS: OSELTAMIVIR PHOSPHATE SUSP 30 MG/5 ML UDP PO SCH (20:12)
[2016-02-13 00:01] VITALS: BP 121/70; PULSE 72; TEMP 36.7; O2SAT 95
[2016-02-13] MEDS: LEVOTHYROXINE 75 MCG TAB PO SCH (05:37)
[2016-02-13] MEDS: HEPARIN SOD 5000 UNIT/0.5 ML CARP SQ SCH ×3 (05:41→22:10)
[2016-02-13] MEDS: INSULIN ASPART 100 UNITS/ML 3 ML PEN SC SCH ×4 (06:30→21:00)
[2016-02-13 07:07] VITALS: BP 126/63; PULSE 52; TEMP 36.7; O2SAT 92
[2016-02-13 07:47] LABS: BUN/CREATININE RATIO 20.4 (10-20); CALCIUM 8.5 mg/dl (8.5-10.1); CREATININE 1.2 mg/dl (0.60-1.20); MAGNESIUM 2.1 mg/dl (1.8-2.4); POTASSIUM 4.2 mmol/L (3.5-5.1)
[2016-02-13 08:00] VITALS: O2SAT 96
[2016-02-13 08:26] LABS: HEMATOCRIT 37.5 % (37-47); MEAN CELL VOLUME 88.2 fL (80-100); MEAN CORPUSCULAR HEMOGLOBIN 29.4 pg (25-34); MEAN CORPUSCULAR HGB CONC 33.3 g/dl (32-36); MEAN PLATELET VOLUME 10.7 fL (7.4-10.4); PLATELET COUNT 170 K/uL (130-400); RED BLOOD COUNT 4.25 M/uL (4.2-5.4); WHITE BLOOD COUNT 5.56 K/uL (4.8-10.8)
[2016-02-13 08:30] VITALS: BP 125/63; PULSE 70; TEMP 36.6; O2SAT 97
[2016-02-13] MEDS: DILTIAZEM HCL 120 MG EXT REL CAP PO SCH (08:41)
[2016-02-13] MEDS: GABAPENTIN 300 MG CAP PO SCH ×3 (08:41→21:35)
[2016-02-13] MEDS: INSULIN DETEMIR FLEXPEN/FLEX TOUCH 100 UNITS/ML 3ML SC SCH (08:48)
[2016-02-13 12:25] LABS: POINT OF CARE TROPONIN I 0.03 ng/ml (0-0.045)
[2016-02-13] MEDS: LEVOFLOXACIN 250 MG TAB PO SCH (12:42)
[2016-02-13 15:16] VITALS: BP 138/73; PULSE 55; TEMP 36.7; O2SAT 92
--- NOTE | 2016-02-13 15:56 | Hospitalist Progress Note ---
Hospitalist Progress Note Date of Service Feb 13, 2016. Subjective Pt evaluation today including: conversation w/ patient, physical exam, chart review, lab review, review of inpatient medication list PO Intake: Tolerating PO diet Voiding: no voiding problems Patient reports feeling okay. She states that she still has some weakness but overall feels better than when she first arrived. She complains of a non- productive cough. She denies any other complaints. She states that she would not feel comfortable going home today as her is still in the hospital as well and they help to take care of one another. She states that she does not have anyone who could stay with her at home, and she's afraid that something might happen and no one would be around to know about it/help her. The patient denies fevers, chills, sweats, chest pain, palpitations, claudication, wheezing, shortness of breath, nausea, vomiting, abdominal pain, dysuria, hematuria, urinary retention, paralysis, numbness and tingling. Additional Comments: See HPI for pertinent positives and negatives. All other systems reviewed and negative. Objective Vital Signs Date Time Temp Pulse Resp B/P Pulse Ox O2 Delivery O2 Flow Rate FiO2 02/13/16 15:16 36.7 55 18 138/73 92 Room Air 02/13/16 08:30 36.6 70 20 125/63 97 Room Air 02/13/16 08:00 96 Room Air 02/13/16 07:07 36.7 52 20 126/63 92 Nasal Cannula 2.0 02/13/16 00:01 36.7 72 20 121/70 95 Nasal Cannula 2.0 02/13/16 00:00 Nasal Cannula 2.0 02/12/16 20:00 Nasal Cannula 2.0 02/12/16 19:09 37.0 70 18 116/68 90 Room Air 02/12/16 16:00 Nasal Cannula 2.0 Physical Exam General Appearance: WD/WN, no apparent distress Eyes: normal inspection, PERRL, EOMI ENT: normal ENT inspection, hearing grossly normal, pharynx normal Neck: supple, no JVD, trachea midline Respiratory/Chest: lungs clear, normal breath sounds, no respiratory distress, + decreased breath sounds Cardiovascular: regular rate, rhythm, no gallop, no murmur Abdomen: normal bowel sounds, non tender, soft Extremities: normal range of motion, normal inspection, no pedal edema Neurologic/Psychiatric: alert, normal mood/affect, oriented x 3 Skin: normal color, warm/dry, no rash Laboratory Results Last 24 Hours Test 02/12/16 16:47 02/12/16 19:59 02/13/16 06:50 02/13/16 07:32 Bedside Glucose 84 mg/dl 117 mg/dl 88 mg/dl White Blood Count 5.56 K/uL Red Blood Count 4.25 M/uL Hemoglobin 12.5 g/dL Hematocrit 37.5 % Mean Corpuscular Volume 88.2 fL Mean Corpuscular Hemoglobin 29.4 pg Mean Corpuscular Hemoglobin Concent 33.3 g/dl RDW Standard Deviation 46.3 fL RDW Coefficient of Variation 14.2 % Platelet Count 170 K/uL Mean Platelet Volume 10.7 fL Sodium Level 139 mmol/L Potassium Level 4.2 mmol/L Chloride Level 105 mmol/L Carbon Dioxide Level 27 mmol/L Anion Gap 7.0 mmol/L Blood Urea Nitrogen 25 mg/dl Creatinine 1.20 mg/dl Est Creatinine Clear Calc Drug Dose 38.8 ml/min Estimated GFR () 51.2 Estimated GFR (Non- 44.2 BUN/Creatinine Ratio 20.4 Random Glucose 86 mg/dl Calcium Level 8.5 mg/dl Magnesium Level 2.1 mg/dl Total Creatine Kinase 739 U/L Test 02/13/16 11:37 Bedside Glucose 102 mg/dl Assessment and Plan 75 y/o female with a history of DM II, CKD stage III, HLD, HTN, and hypothyroidism presented to the ED on 02/10 with weakness, multiple recent falls , and dehydration. Pt. tested positive for influenza A. Pt. found to have rhabdomyolysis upon arrival with elevated CK of 1446. UA positive for UTI. -Admitted to med/surg -Continue Tamiflu -PT/OT consulted: pt is safe to return home -Urine cultures show E. coli sensitive to Levaquin, continue abx Rhabdomyolysis--improved -CK improved to 739 -Renal function improved and stable -Adequate PO intake Acute on chronic kidney disease stage III--baseline creatinine 1.2-1.4 -Creatinine 1.6 upon arrival -Creatinine 1.2 on 1/2 Diabetes mellitus type 2--HgbA1c checked 01/18/16 was 6.2 -Levemir 12 units SC qam -Insulin sliding scale -Check BSGs q ac and qhs HTN -Continue diltiazem 240 mg PO qd Hypothyroidism -Continue Synthroid 75 mcg PO qd DVT prophylaxis -Heparin 5000 units SC q8h -CAT Pugh Code Status -Level I, FULL RESUSCITATION STATUS Dispo -Pt. should be stable for discharge tomorrow, will discuss with family about her care if her is still in hospital by then
[2016-02-13 16:00] VITALS: O2SAT 92
[2016-02-13] MEDS: OSELTAMIVIR PHOSPHATE SUSP 30 MG/5 ML UDP PO SCH (21:53)
[2016-02-14] VITALS: O2SAT 94
[2016-02-14 00:18] VITALS: BP 143/65; PULSE 79; TEMP 36.3; O2SAT 92
[2016-02-14] MEDS: HEPARIN SOD 5000 UNIT/0.5 ML CARP SQ SCH ×2 (06:00→13:52)
[2016-02-14] MEDS: LEVOTHYROXINE 75 MCG TAB PO SCH (06:39)
[2016-02-14 07:12] VITALS: BP 152/77; PULSE 52; TEMP 36.4; O2SAT 90
[2016-02-14 07:35] LABS: HEMATOCRIT 40.6 % (37-47); MEAN CELL VOLUME 86.9 fL (80-100); MEAN CORPUSCULAR HEMOGLOBIN 29.6 pg (25-34); PLATELET COUNT 196 K/uL (130-400); RED BLOOD COUNT 4.67 M/uL (4.2-5.4)
[2016-02-14] MEDS: GABAPENTIN 300 MG CAP PO SCH ×2 (07:59→13:59)
[2016-02-14 08:00] VITALS: O2SAT 90
[2016-02-14] MEDS: INSULIN ASPART 100 UNITS/ML 3 ML PEN SC SCH ×2 (08:03→12:36)
[2016-02-14] MEDS: INSULIN DETEMIR FLEXPEN/FLEX TOUCH 100 UNITS/ML 3ML SC SCH (08:04)
[2016-02-14 08:06] LABS: BUN/CREATININE RATIO 17.7 (10-20); CALCIUM 9.1 mg/dl (8.5-10.1); CREATININE 1.2 mg/dl (0.60-1.20); POTASSIUM 4.2 mmol/L (3.5-5.1)
[2016-02-14] MEDS: DILTIAZEM HCL 120 MG EXT REL CAP PO SCH (08:31)
[2016-02-14] MEDS ORDERED: NURSING VERBAL MED ORDER ONE (08:45)
[2016-02-14] MEDS: LEVOFLOXACIN 250 MG TAB PO SCH (10:55)
[2016-02-14] MEDS ORDERED: TMFUDL30 PO (14:46)
[2016-02-14] MEDS ORDERED: LVQ250 PO (14:46)
--- NOTE | 2016-02-14 14:56 | Discharge Instructions ---
Discharge Instructions Admission Reason for Admission: Influenza A, Rhabdomyolysis Discharge Discharge Diagnosis / Problem: Influenza A, rhabdomyolysis Discharge Goals Goal(s): Decrease discomfort, Improve disease control, Diagnostic testing, Therapeutic intervention Activity Recommendations Activity Limitations: as noted below Lifting Limitations: no more than 10 pounds Exercise/Sports Limitations: gradually increase as tolerated Shower/Bathe: no limitations Gradually increase your activity as tolerated. If you begin to feel weak, fatigued, dizzy or lightheaded, stop and rest. Do not over-exert yourself and use assistance as necessary. . Instructions / Follow-Up Instructions / Follow-Up You were admitted to the hospital for weakness, dehydration, and recent falls. You were found to be positive for the flu (influenza A) as well as a urinary tract infection (UTI). Both illnesses likely contributed to your weakness and dehydration, causing you to fall. Due to your falls, there was some mild muscle break down, called rhabdomyolysis. This improved greatly with the administration of IV fluids. Please continue to drink plenty of water and fluids in the next few days as you recover from the flu as well as the rhabdomyolysis so that you are adequately hydrated. You were started on an antibiotic called Levaquin for your UTI. You completed 4 days of this antibiotic. You have one day left for a total of a 5 day course. A prescription for Levaquin 250 mg by mouth daily for 1 more day was sent to your pharmacy. Please take the remaining dose of the antibiotic tomorrow. You were also given Tamiflu while in the hospital to help you recover from the flu. You have received this medication for 3 days, and it is also a 5 day course. A prescription for Tamiflu for the next 2 days was also sent to your pharmacy. Please start the Tamiflu tonight, as you did not receive a dose of this in the hospital today. Please take Tamiflu 5 mL (equal to 1 teaspoon) by mouth at nighttime today and tomorrow. You are medically stable to go home. Please remember that you will still feel weak for the next few days as you recover from the flu. Do not over-exert yourself. You may gradually increase activity as tolerated. Please follow up with your primary care provider in 1 week regarding your hospital stay and to ensure resolution of your illnesses. Current Hospital Diet Patient's current hospital diet: Diabetes Type 2 Diet Discharge Diet Recommended Diet: Diabetes Type 2 Diet Pending Studies Studies pending at discharge: no Laboratory Results Hemoglobin A1c Test 01/18/16 15:20 Range/Units Estimated Average Glucose 131 mg/dl Hemoglobin A1c 6.2 H 4.5-5.6 % Medical Emergencies . Who to Call and When: Medical Emergencies: If at any time you feel your situation is an emergency, please call 911 immediately. . Non-Emergent Contact Non-Emergency issues call your: Primary Care Provider Call Non-Emergent contact if: you have a fever, you have any medication questions . Past History Medical & Surgical History: (1) Influenza A (2) UTI (urinary tract infection) (3) Rhabdomyolysis . "Provider Documentation" section prepared by Kailyn Don. VTE Core Measure Inpt VTE Proph given/why not?: Unfractionated heparin SQ, T.E.D. Stockings, SCD 's
[2016-02-14 14:57] VITALS: BP 141/71; PULSE 62; TEMP 37; O2SAT 94
--- NOTE | 2016-02-14 15:05 | Discharge Summary ---
Discharge Summary Admission Date: Feb 11, 2016 at 13:13 Discharge Date: Feb 14, 2016 Discharge Disposition: Home Principal Diagnosis: Influenza A, rhabdomyolysis, UTI Problems/Secondary Diagnoses: (1) Diabetes Status: Chronic (2) Hyperlipidemia, Unspecified Status: Chronic (3) Hypertension Status: Chronic (4) Hypothyroidism Nos Status: Chronic (5) Lumbar degenerative disc disease Status: Chronic Immunizations: Have You Had Influenza Vaccine: Yes Influenza Vaccine Date: Nov 26, 2010 History of Tetanus Vaccine?: Yes Tetanus Immunization Date: May 27, 2008 History of Pneumococcal: Yes Pneumococcal Date: Nov 26, 2009 History of Hepatitis B Vaccine: No Medication Reconciliation New Medications: Levofloxacin (Levofloxacin) 250 Mg Tab 250 MG PO DAILY@11 for 1 Day, #1 TAB Oseltamivir Phosphate (Tamiflu) 6 Mg/Ml [place] 30 MG PO QPM for 2 Days, #10 ML Take 5 mL (equal to 1 teaspoon) every evening for 2 days. Continued Medications: Atorvastatin (Lipitor) 20 Mg Tab 20 MG PO QPM, TAB Diltiazem Hcl Ext Rel (Tiazac) 240 Mg Capcr 240 MG PO QAM, CAP Ergocalciferol (Vitamin D) 50,000 Interunit Cap 70384 INTER.UNIT PO MONTHLY, #9 Furosemide (Lasix) 20 Mg Tab 20 MG PO QAM PRN for EDEMA, TAB Gabapentin (Neurontin) 300 Mg Cap 300 MG PO TID, CAP Hydrocodone/Acetaminophen 5MG/325MG (Ford 5MG/325MG) Tab 1-2 TABS PO Q6H PRN for Pain, #15 TAB Insulin Aspart Penfill (Novolog Penfill) Inj 2 UNITS SC UD, 0 Refills AFTERNOON AND BEDTIME Insulin Detmir (Levemir) Inj 12 UNITS SC QAM, VIAL Levothyroxine Sodium (Levothyroxine Sodium) 75 Mcg Tab 75 MCG PO DAILY, #90 Discontinued Medications: Levothyroxine Sodium (Levothyroxine Sodium) 88 Mcg Tab 88 MCG PO DAILY for 90 Days, #90 TAB 3 Refills Discharge Exam Patient feeling well today. The patient states that she is typically very independent with her daily activities at home. She is still somewhat weak and fatigued, but feels even better than yesterday. Her cough is no longer productive and is decreasing in frequency. She denies any other complaints. Review of Systems: Constitutional: + fatigue (improved), + weakness (improved), No chills, No fever, No sweats Eyes: No diplopia, No eye pain, No worsening of vision ENT: No hearing loss, No nasal symptoms, No sore throat Respiratory: + cough (improving), No shortness of breath, No sputum, No wheezing Cardiovascular: No chest pain, No claudication, No palpitations Abdomen: No nausea, No pain, No vomiting Musculoskeletal: No calf pain, No joint pain, No muscle pain Genitourinary - Female: No dysuria, No hematuria, No urinary retention Neurologic: No numbness/tingling, No paralysis, No weakness Integumentary: No color change, No itch, No rash Physical Exam: General Appearance: WD/WN, no apparent distress Eyes: normal inspection, PERRL, EOMI ENT: normal ENT inspection, hearing grossly normal, pharynx normal Neck: supple, no JVD, trachea midline Respiratory/Chest: lungs clear, normal breath sounds, no respiratory distress, + decreased breath sounds Cardiovascular: regular rate, rhythm, no gallop, no murmur Abdomen / GI: normal bowel sounds, non tender, soft Extremities: normal inspection, no calf tenderness, no pedal edema Neurologic/Psychiatric: alert, normal mood/affect, oriented x 3 Skin: normal color, warm/dry, no rash Hospital Course 75 y/o female with a history of DM II, CKD stage III, HLD, HTN, and hypothyroidism presented to the ED on 02/10 with weakness, multiple recent falls , and dehydration. Pt. tested positive for influenza A. Pt. found to have rhabdomyolysis upon arrival with elevated CK of 1446. UA positive for UTI. -Admitted to med/surg -Continue Tamiflu. Pt. received 3 days worth in hospital, will not receive dose today while inpatient as it is scheduled for nighttime, script for 2 more days sent to pharmacy, pt to start tonight -PT/OT consulted: pt is safe to return home -Urine cultures show E. coli sensitive to Levaquin, continue abx. Pt. received 4 days of abx while inpatient, will continue at discharge for 1 more day for uncomplicated UTI Rhabdomyolysis--improved -CK improved to 694 prior to discharge -Renal function improved and stable -Adequate PO intake. Encouraged PO fluid intake upon discharge. Acute on chronic kidney disease stage III--baseline creatinine 1.2-1.4 -Creatinine 1.6 upon arrival -Creatinine 1.2 on 02/12 and 02/13. BUN improved, 21 upon discharge Diabetes mellitus type 2--HgbA1c checked 01/18/16 was 6.2 -Levemir 12 units SC qam -Insulin sliding scale -Check BSGs q ac and qhs -Pt may resume home regimen upon discharge HTN -Continue diltiazem 240 mg PO qd Hypothyroidism -Continue Synthroid 75 mcg PO qd DVT prophylaxis -Heparin 5000 units SC q8h -CAT alex and Heber Code Status -Level I, FULL RESUSCITATION STATUS Dispo -Pt. medically stable for discharge, cleared to return to home by PT. Pt. was somewhat hesitant about going home without , but she has been stable and states that she is able to do things independently, so she thinks she will be okay. Advised her to slowly increase activity as tolerated and to stop and rest if she feels weak, fatigued, or lightheaded. Explained that she will feel weak for some time due to the flu and to not over-exert herself and to ask for assistance as needed. Total Time Spent: Greater than 30 minutes This includes examination of the patient, discharge planning, medication reconciliation, and communication with other providers. Discharge Instructions Please refer to the electronic Patient Visit Report (Discharge Instructions) for additional information.
[2016-02-14] MEDS ORDERED: DILT120C11 PO (15:42)
== END 2016-02-14 17:01 | disposition home or self-care (01) | DRG 194 ==
LOC: ENRESERVDT → ENRESERVTM → EDBD 08:14 → C.EDB 08:15 → UNDOADMIN 13:13 → C.MED 13:13
PROVIDERS: ADMIT Internal Medicine; ATTEND Hospitalist
DX: J09.X2 Influenza due to identified novel influenza A virus with other respiratory manifestations (principal); M62.82 Rhabdomyolysis; N39.0 Urinary tract infection, site not specified; B96.20 Unspecified Escherichia coli [E. coli] as the cause of diseases classified elsewhere; R09.02 Hypoxemia; R00.1 Bradycardia, unspecified; T46.1X5A Adverse effect of calcium-channel blockers, initial encounter; Y92.230 Patient room in hospital as the place of occurrence of the external cause; E86.0 Dehydration; R29.6 Repeated falls; N28.9 Disorder of kidney and ureter, unspecified; R32 Unspecified urinary incontinence; I12.9 Hypertensive chronic kidney disease with stage 1 through stage 4 chronic kidney disease, or unspecified chronic kidney disease; N18.3 Chronic kidney disease, stage 3 (moderate); E11.22 Type 2 diabetes mellitus with diabetic chronic kidney disease; E78.5 Hyperlipidemia, unspecified; E03.9 Hypothyroidism, unspecified; Z79.4 Long term (current) use of insulin; Z79.891 Long term (current) use of opiate analgesic; Z79.899 Other long term (current) drug therapy

== ENCOUNTER → 2016-04-03 | Outpatient (CLI) | payer BC ==
[~2016-04-03] MED LIST changes: -CIPR-255 PO; -DILT-115 PO; +ERGO500037 PO; -GABA-112 PO; +GABA-113 PO; +INSDGI SQ; +INSU1INJ2 SQ; +LEVO75TA5 PO; -LEVO88TA3 PO; +LVQ250 PO; +LYR100 PO; +NVLG SQ; +TMFUDL30 PO
[2016-04-03 10:56] LABS: HEMATOCRIT 40.1 % (37-47); MEAN CORPUSCULAR HEMOGLOBIN 28.8 pg (25-34); MEAN CORPUSCULAR HGB CONC 33.9 g/dl (32-36); MEAN PLATELET VOLUME 10.2 fL (7.4-10.4); PLATELET COUNT 274 K/uL (130-400); RED BLOOD COUNT 4.72 M/uL (4.2-5.4); WHITE BLOOD COUNT 9.85 K/uL (4.8-10.8)
[2016-04-03 11:04] LABS: URINE APPEARANCE TURBID (CLEAR); URINE BILIRUBIN NEG (NEG); URINE COLOR YELLOW; URINE EPITHELIAL CELL AUTO >30 /lpf (0-5); URINE NITRITE POS (NEG); URINE SPECIFIC GRAVITY 1.014 (1.000-1.030); UROBILINOGEN NEG (NEG)
[2016-04-03 11:05] LABS: MANUAL MICROSCOPIC REQUIRED? NO; REVIEW REQ? NO
[2016-04-03 11:06] LABS: BLOOD UREA NITROGEN 28 mg/dl (7-18); BUN/CREATININE RATIO 21.8 (10-20); CALCIUM 9.4 mg/dl (8.5-10.1); CARBON DIOXIDE 33 mmol/L (21-32); CHLORIDE 100 mmol/L (98-107); GLUCOSE 112 mg/dl (70-99); POTASSIUM 3.8 mmol/L (3.5-5.1); SODIUM 139 mmol/L (136-145)
[2016-04-03 11:16] LABS: THYROID STIMULATING HORMONE 0.677 uIu/ml (0.300-4.500)
[2016-04-03 11:42] LABS: URINE PROTIEN/CREAT RATIO 0.4 (0-0.2); URINE TOTAL PROTEIN 38.5 mg/dl (0-11.9)
== END | disposition home or self-care (01) ==
LOC: C.LAB 09:23
PROVIDERS: ATTEND Internal Medicine Geriatric Medicine
DX: N18.3 Chronic kidney disease, stage 3 (moderate) (principal); I10 Essential (primary) hypertension; E03.9 Hypothyroidism, unspecified; E11.29 Type 2 diabetes mellitus with other diabetic kidney complication; E55.9 Vitamin D deficiency, unspecified; R60.9 Edema, unspecified

== ENCOUNTER → 2016-04-16 | Outpatient (CLI) | payer BC ==
[2016-04-16 13:18] LABS: URINE APPEARANCE CLOUDY (CLEAR); URINE BILIRUBIN NEG (NEG); URINE COLOR YELLOW; URINE NITRITE NEG (NEG); URINE SPECIFIC GRAVITY 1.004 (1.000-1.030); UROBILINOGEN NEG (NEG)
[2016-04-16 13:22] LABS: MANUAL MICROSCOPIC REQUIRED? NO; REVIEW REQ? NO
[2016-04-16 13:45] LABS: ESTIMATED AVERAGE GLUCOSE 160 mg/dl; HA1C FLAG Normal (Normal)
== END | disposition home or self-care (01) ==
LOC: C.LABBC 10:03
PROVIDERS: ATTEND Nurse Practitioner Family
DX: N39.41 Urge incontinence (principal); E11.29 Type 2 diabetes mellitus with other diabetic kidney complication

== ENCOUNTER → 2016-05-02 | Outpatient (CLI) | payer BC ==
[2016-05-02 17:05] LABS: URINE APPEARANCE CLEAR (CLEAR); URINE BILIRUBIN NEG (NEG); URINE COLOR YELLOW; URINE EPITHELIAL CELL AUTO 0-5 /lpf (0-5); URINE NITRITE NEG (NEG); UROBILINOGEN NEG (NEG); ZZUR CULT IF INDIC CLEAN CATCH NO
[2016-05-02 17:16] LABS: MANUAL MICROSCOPIC REQUIRED? NO; REVIEW REQ? NO
== END | disposition home or self-care (01) ==
LOC: C.LABBC 15:08
PROVIDERS: ATTEND Internal Medicine Geriatric Medicine
DX: R35.0 Frequency of micturition (principal)

== ENCOUNTER → 2016-05-21 | Outpatient (CLI) | payer BC | END | disposition home or self-care (01) | LOC: C.MAMM 13:58 | PROVIDERS: ATTEND Internal Medicine Geriatric Medicine | DX: N18.3 Chronic kidney disease, stage 3 (moderate) (principal); E55.9 Vitamin D deficiency, unspecified; M54.5 Low back pain; M85.852 Other specified disorders of bone density and structure, left thigh ==

== ENCOUNTER → 2016-07-10 | Outpatient (CLI) | payer BC ==
[~2016-07-10] MED LIST changes: -HYDR-5688 PO
[2016-07-10 14:06] LABS: BLOOD UREA NITROGEN 36 mg/dl (7-18); BUN/CREATININE RATIO 22.3 (10-20); CALCIUM 9.5 mg/dl (8.5-10.1); CARBON DIOXIDE 31 mmol/L (21-32); CHLORIDE 102 mmol/L (98-107); CHOLESTEROL 120 mg/dl (0-200); GLUCOSE 128 mg/dl (70-99); SODIUM 141 mmol/L (136-145)
[2016-07-10 14:08] LABS: ESTIMATED AVERAGE GLUCOSE 160 mg/dl; HA1C FLAG Normal (Normal)
[2016-07-10 14:16] LABS: CHOLESTEROL/HDL RATIO 2.6; HDL CHOLESTEROL 47 mg/dl; LDL CHOLESTEROL CALCULATED 54 mg/dl; THYROID STIMULATING HORMONE 0.335 uIu/ml (0.300-4.500); TRIGLYCERIDES 93 mg/dl (0-150); VERY LOW DENSITY LIPOPROT CALC 19 mg/dl
== END | disposition home or self-care (01) ==
LOC: C.LABBC 12:11
PROVIDERS: ATTEND Nurse Practitioner Family
DX: I10 Essential (primary) hypertension (principal); E11.29 Type 2 diabetes mellitus with other diabetic kidney complication

== ENCOUNTER → 2016-10-08 | Outpatient (CLI) | payer BC ==
[2016-10-08 14:02] LABS: HEMATOCRIT 38.8 % (37-47); MEAN CELL VOLUME 86.2 fL (80-100); MEAN CORPUSCULAR HEMOGLOBIN 28.9 pg (25-34); MEAN CORPUSCULAR HGB CONC 33.5 g/dl (32-36); MEAN PLATELET VOLUME 11.4 fL (7.4-10.4); PLATELET COUNT 218 K/uL (130-400); WHITE BLOOD COUNT 8.57 K/uL (4.8-10.8)
[2016-10-08 14:18] LABS: ESTIMATED AVERAGE GLUCOSE 146 mg/dl; HA1C FLAG Normal (Normal)
[2016-10-08 14:26] LABS: ALT/SGPT 17 U/L (12-78); AST/SGOT 18 U/L (15-37); BLOOD UREA NITROGEN 36 mg/dl (7-18); BUN/CREATININE RATIO 24.1 (10-20); CARBON DIOXIDE 31 mmol/L (21-32); CHLORIDE 105 mmol/L (98-107); GLUCOSE 98 mg/dl (70-99); POTASSIUM 3.8 mmol/L (3.5-5.1); SODIUM 141 mmol/L (136-145)
[2016-10-08 14:36] LABS: ALB/GLOB RATIO 0.7 (0.9-2); ALKALINE PHOSPHATASE 121 U/L (45-117); THYROID STIMULATING HORMONE 0.554 uIu/ml (0.300-4.500)
[2016-10-08 17:20] LABS: URINE APPEARANCE TURBID (CLEAR); URINE BILIRUBIN NEG (NEG); URINE COLOR YELLOW; URINE NITRITE POS (NEG); URINE SPECIFIC GRAVITY 1.015 (1.000-1.030); UROBILINOGEN NEG (NEG)
[2016-10-08 17:21] LABS: MANUAL MICROSCOPIC REQUIRED? NO; REVIEW REQ? NO
[2016-10-08 17:27] LABS: SULFASALICYLIC ACID NEG (NEG)
[2016-10-08 18:00] LABS: URINE PROTIEN/CREAT RATIO 0.4 (0-0.2); URINE TOTAL PROTEIN 43.2 mg/dl (0-11.9)
== END | disposition home or self-care (01) ==
LOC: C.LABBC 09:50
PROVIDERS: ATTEND Internal Medicine Geriatric Medicine
DX: I13.0 Hypertensive heart and chronic kidney disease with heart failure and stage 1 through stage 4 chronic kidney disease, or unspecified chronic kidney disease (principal); N18.3 Chronic kidney disease, stage 3 (moderate); E55.9 Vitamin D deficiency, unspecified; R80.9 Proteinuria, unspecified; R60.9 Edema, unspecified

== ENCOUNTER 2016-10-18 11:29 | Emergency (ER) | payer BC ==
[~2016-10-18] VITALS: Ht 144.8 cm; Wt 73.5 kg
[~2016-10-18 11:29] MED LIST changes: -ERGO500037 PO; -INSDGI SQ; -INSU1INJ2 SQ; -LYR100 PO; -NVLG SQ
[2016-10-18 11:32] VITALS: TEMP 36.7; Ht 144.8 cm; Wt 73.5 kg
[2016-10-18] MEDS ORDERED: LIDO/EPINEPHRINE/SOD BICARB 20 ML VIAL INFIL ONE (11:42)
[2016-10-18] MEDS ORDERED: LYR100 PO (12:34)
[2016-10-18] MEDS ORDERED: INSDGI SQ (12:34)
[2016-10-18] MEDS ORDERED: NVLG SQ (12:34)
[2016-10-18] MEDS ORDERED: ERGO500037 PO (12:34)
[2016-10-18] MEDS ORDERED: INSU1INJ2 SQ (12:34)
--- NOTE | 2016-10-18 13:29 | EMERGENCY ROOM VISIT NOTE ---
ED Visit Note First contact with patient: 11:42 I have seen and examined this patient with Kailyn Prince and generally agree with the treatment plan as discussed. Problem List Medical Problems: (1) Diabetes Status: Chronic (2) Fall Status: Resolved (3) Hyperlipidemia, Unspecified Status: Chronic (4) Hypertension Status: Chronic (5) Hypothyroidism Nos Status: Chronic (6) Left leg pain Status: Resolved (7) Leg pain, left Status: Resolved (8) Lumbar degenerative disc disease Status: Chronic (9) Medication withdrawal Status: Resolved (10) Right rib fracture Status: Resolved (11) UTI (urinary tract infection) Status: Resolved Surgical Problems: (1) History of breast cancer Status: Resolved (2) History of lumbar fusion Status: Resolved (3) History of mastectomy Status: Resolved Current/Historical Medications Scheduled Atorvastatin (Lipitor), 20 MG PO QPM Ergocalciferol (Vitamin D 07427 Unit), 50,000 UNIT PO MONTHLY Insulin Aspart (Novolog Penfill), 3 UNITS SQ @NOON Insulin Aspart (Novolog), 5 UNITS SQ QPM Insulin Glargine (Lantus), 17 UNITS SQ QAM Levothyroxine Sodium (Levothyroxine Sodium), 75 MCG PO DAILY Pregabalin (Lyrica), 100 MG PO DAILY Scheduled PRN Furosemide (Lasix), 20 MG PO QAM PRN for EDEMA Allergies Coded Allergies: Penicillins (Verified Adverse Reaction, Unknown, PT CLAIMS PCN DOESN'T WORK, 10/18/16) PT CLAIMS SHE HAS BUILT UP RESISTANCE TO PCN - IT "DOESN'T WORK" Vital Signs Date Time Temp Pulse Resp B/P (MAP) Pulse Ox O2 Delivery O2 Flow Rate FiO2 10/18/16 13:26 62 18 130/73 94 Room Air 10/18/16 11:32 36.7 66 18 108/69 92 Room Air Medications Administered Medications (Trade) Dose Ordered Sig/Erich Route Start Time Stop Time Status Last Admin Dose Admin Lidocaine/ Epinephrine (Buffered Xylocaine/ Epinephrine 1% Inj) 20 ml STK-MED ONCE INFIL 10/18/16 11:42 10/18/16 11:43 DC 10/18/16 11:44 20 ML Departure Information Referrals Prabhakar Jean M.D. (PCP) Patient Instructions My [facility]
--- NOTE | 2016-10-18 13:36 | DIAGNOSTIC IMAGING REPORT ---
CT SCAN OF THE BRAIN WITHOUT IV CONTRAST CLINICAL HISTORY: Head injury. COMPARISON STUDY: CT of the brain dated 02/11/2016. TECHNIQUE: Unenhanced axial CT scan of the brain is performed from the vertex to the skull base. The examination is modestly degraded by motion artifact. CT DOSE: 1915.68 mGycm FINDINGS: Brain parenchyma: There are age-related involutional changes noting mild subcortical and periventricular microangiopathic change. There is no hemorrhage, mass effect, or evidence of acute territorial ischemia by CT criteria. Sykes-white matter is preserved. No extra-axial fluid collection is seen. Ventricles, sulci, cisterns: Prominent secondary to involutional change. Intracranial vasculature: There is atherosclerotic calcification of the cavernous carotid arteries. Calvarium: The skeletal structures are osteopenic. There is no depressed calvarial fracture. Soft tissues: There is a left frontal scalp contusion. Sinuses and mastoids: Trace mucosal thickening is seen in the right maxillary antrum. The remaining visualized paranasal sinuses are clear. There are small mastoid effusions. Orbits: The bony orbits are grossly intact. There are bilateral ocular lens implants. There has been banding of the right ocular globe. IMPRESSION: 1. There is no hemorrhage, mass effect, or evidence of acute territorial ischemia by CT criteria. 2. Left frontal scalp contusion. No depressed calvarial fracture is seen. Electronically signed by: Zhao Pak M.D. 10/18/2016 1:34 PM Dictated Date/Time: 10/18/2016 1:31 PM
--- NOTE | 2016-10-18 13:58 | EMERGENCY ROOM VISIT NOTE ---
ED Visit Note First contact with patient: 11:42 CHIEF COMPLAINT: Scalp laceration HISTORY OF PRESENT ILLNESS: This 75-year-old female patient presents emergency department approximately one hour after striking the head on a large rock. The patient states she was picking up branches on the patio, when she tripped and fell over the cutter, hitting the anterior, dorsal aspect of her scalp against a large stone. The patient is now complaining of a bilateral frontal headache. The patient has a laceration on the right aspect of the top of the head, as well as a hematoma on the left forehead. There was no loss of consciousness, blurry vision, nausea, vomiting, or unusual behavior afterwards. The patient's daughter is with her in the emergency department states the patient is acting and behaving normally. The patient does appear to be slightly emotional that she had to call her daughter to take off work and come bring her to the emergency department. The patient is not on any blood thinners or aspirin. The patient does not have any cardiac or pulmonary history. The fall was unwitnessed. The patient rates the pain as throbbing and 0/10. The patient denies neck pain. The bleeding has stopped. The patient's tetanus shot is up to date. REVIEW OF SYSTEMS: A 6 system review of systems was completed with positives and pertinent negatives listed in the HPI. ALLERGIES: Penicillins MEDICATIONS: Atorvastatin, vitamin D, Lasix, NovoLog, Lantus, levothyroxine, Lyrica PMH: Diabetes, hyperlipidemia, hypothyroidism SOCIAL HISTORY: The patient lives locally. She denies drug, alcohol, tobacco use. PHYSICAL EXAM: Vital Signs: Reviewed Nurse's notes, vital signs stable. GENERAL : This is a 75-year-old female, in no acute distress, well-developed, well- nourished. NEURO: Patient was alert and oriented to person place and time. Sensory and motor functions grossly intact. No focal neurologic deficits. Normal sensation to light and sharp touch. EYES: PERRLA. EOMI. Fundoscopic exam without hemorrhages or papilledema. EARS: No hemotympanum. No sexton sign or mastoid tenderness. SKIN: There is a 1.5 cm laceration on the dorsal, anterior aspect of the scalp whose edges are gaping apart. There is no active bleeding. The wound is clean and there are no deep structures present. NECK: Supple, cervical spine nontender to palpation. RADIOLOGY: CT Head without Contrast: FINDINGS: Brain parenchyma: There are age-related involutional changes noting mild subcortical and periventricular microangiopathic change. There is no hemorrhage, mass effect, or evidence of acute territorial ischemia by CT criteria. Sykes-white matter is preserved. No extra-axial fluid collection is seen. Ventricles, sulci, cisterns: Prominent secondary to involutional change. Intracranial vasculature: There is atherosclerotic calcification of the cavernous carotid arteries. Calvarium: The skeletal structures are osteopenic. There is no depressed calvarial fracture. Soft tissues: There is a left frontal scalp contusion. Sinuses and mastoids: Trace mucosal thickening is seen in the right maxillary antrum. The remaining visualized paranasal sinuses are clear. There are small mastoid effusions. Orbits: The bony orbits are grossly intact. There are bilateral ocular lens implants. There has been banding of the right ocular globe. IMPRESSION: 1. There is no hemorrhage, mass effect, or evidence of acute territorial ischemia by CT criteria. 2. Left frontal scalp contusion. No depressed calvarial fracture is seen. EMERGENCY DEPARTMENT COURSE: I examined the patient. A CT Scan was ordered to rule out intracranial hemorrhage. This was reviewed by myself and radiologist and was negative. The patient was seen by Dr. Cox. Verbal consent was obtained to perform the procedure. Using sterile technique the wound was cleaned with Betadine. The area was sterilely draped. 4 ml of 1 % buffered lidocaine with epinephrine was used to anesthetize the patient's scalp. Once the patient was numb, the wound was copiously irrigated under pressure with sterile saline. The wound was explored and there were no deep structures present. The laceration was repaired using 5 dinorah with the wound edges being well approximated. The patient tolerated the procedure well. The bleeding stopped. The area was cleaned with sterile saline and dressed with bacitracin ointment. The patient was discharged home in good condition. DIFFERENTIAL DIAGNOSIS: Closed head injury or concussion, intracranial hemorrhage, laceration, contusion, skull fracture, hematoma, and others. DIAGNOSIS: Scalp laceration DISCHARGE INSTRUCTIONS: You have received 5 dinorah on your head. These dinorah are NOT dissolvable and WILL need to be removed by a health care provider in 10 days. You can return to the Emergency Department or contact your Primary Care Provider to have these dinorah removed. Proper wound care is essential for adequate wound healing and infection prevention. You can shower and clean the wound with soap and water. Do scour over the wound, pat dry with a towel. Do not submerse the wound until the dinorah have been removed. You can use an antibiotic ointment with a dressing over the wound for the next 3-4 days. After this time you may leave the wound dry and open to the air. If crust develops over the wound you can use a Q-tip to apply a 1:1 peroxide:water solution to clean the wound. Look for signs of infection of the wound including: increased pain, swelling, foul discharge, streaking, or increased temperature. If any of these are noticed you should return to the Emergency Department for further assessment and treatment. As with any laceration you may have received nerve damage to the surrounding tissues. This damage may or may not be permanent. For pain control, you can use the following [id number]-[id number] medicines (if >12 yo): - Regular strength (325mg/tab) Tylenol (acetaminophen) 2 tabs every 4-6 hours as needed. Do not exceed 9 tablets in a 24 hour period. Avoid taking more than 3 grams (3000 mg) of Tylenol per day. This includes any other sources of acetaminophen you may take on a regular basis. - Regular strength (200 mg/tab) Advil (ibuprofen) 1-2 tabs every 4-6 hours as needed. Do not exceed a dose of 2400 mg per day. Return to the emergency department if your symptoms worsen despite treatment course outlined above. Problem List Medical Problems: (1) Diabetes Status: Chronic (2) Fall Status: Resolved (3) Hyperlipidemia, Unspecified Status: Chronic (4) Hypertension Status: Chronic (5) Hypothyroidism Nos Status: Chronic (6) Left leg pain Status: Resolved (7) Leg pain, left Status: Resolved (8) Lumbar degenerative disc disease Status: Chronic (9) Medication withdrawal Status: Resolved (10) Right rib fracture Status: Resolved (11) UTI (urinary tract infection) Status: Resolved Surgical Problems: (1) History of breast cancer Status: Resolved (2) History of lumbar fusion Status: Resolved (3) History of mastectomy Status: Resolved Current/Historical Medications Scheduled Atorvastatin (Lipitor), 20 MG PO QPM Ergocalciferol (Vitamin D 56790 Unit), 50,000 UNIT PO MONTHLY Insulin Aspart (Novolog Penfill), 3 UNITS SQ @NOON Insulin Aspart (Novolog), 5 UNITS SQ QPM Insulin Glargine (Lantus), 17 UNITS SQ QAM Levothyroxine Sodium (Levothyroxine Sodium), 75 MCG PO DAILY Pregabalin (Lyrica), 100 MG PO DAILY Scheduled PRN Furosemide (Lasix), 20 MG PO QAM PRN for EDEMA Allergies Coded Allergies: Penicillins (Verified Adverse Reaction, Unknown, PT CLAIMS PCN DOESN'T WORK, 10/18/16) PT CLAIMS SHE HAS BUILT UP RESISTANCE TO PCN - IT "DOESN'T WORK" Vital Signs Date Time Temp Pulse Resp B/P (MAP) Pulse Ox O2 Delivery O2 Flow Rate FiO2 10/18/16 14:19 62 18 130/73 94 10/18/16 13:26 62 18 130/73 94 Room Air 10/18/16 11:32 36.7 66 18 108/69 92 Room Air Medications Administered Medications (Trade) Dose Ordered Sig/Erich Route Start Time Stop Time Status Last Admin Dose Admin Lidocaine/ Epinephrine (Buffered Xylocaine/ Epinephrine 1% Inj) 20 ml STK-MED ONCE INFIL 10/18/16 11:42 10/18/16 11:43 DC 10/18/16 11:44 20 ML Departure Information Impression Primary Impression: Laceration of scalp Additional Impression: Traumatic hematoma of head Dispostion Home / Self-Care Condition GOOD Referrals Prabhakar Jean M.D. (PCP) Patient Instructions ED Laceration Scalp Stitch Or Stap, My [facility] [employer] Additional Instructions You have received 5 dinorah on your head. These dinorah are NOT dissolvable and WILL need to be removed by a health care provider in 10 days. You can return to the Emergency Department or contact your Primary Care Provider to have these dinorah removed. Proper wound care is essential for adequate wound healing and infection prevention. You can shower and clean the wound with soap and water. Do scour over the wound, pat dry with a towel. Do not submerse the wound until the dinorah have been removed. You can use an antibiotic ointment with a dressing over the wound for the next 3-4 days. After this time you may leave the wound dry and open to the air. If crust develops over the wound you can use a Q-tip to apply a 1:1 peroxide:water solution to clean the wound. Look for signs of infection of the wound including: increased pain, swelling, foul discharge, streaking, or increased temperature. If any of these are noticed you should return to the Emergency Department for further assessment and treatment. As with any laceration you may have received nerve damage to the surrounding tissues. This damage may or may not be permanent. For pain control, you can use the following kyva-ovw-lqeekpa medicines (if >12 yo): - Regular strength (325mg/tab) Tylenol (acetaminophen) 2 tabs every 4-6 hours as needed. Do not exceed 9 tablets in a 24 hour period. Avoid taking more than 3 grams (3000 mg) of Tylenol per day. This includes any other sources of acetaminophen you may take on a regular basis. - Regular strength (200 mg/tab) Advil (ibuprofen) 1-2 tabs every 4-6 hours as needed. Do not exceed a dose of 2400 mg per day. Return to the emergency department if your symptoms worsen despite treatment course outlined above. Problem Qualifiers Primary Impression: Laceration of scalp Encounter type: initial encounter Qualified Codes: S01.01XA - Laceration without foreign body of scalp, initial encounter Additional Impression: Traumatic hematoma of head Encounter type: initial encounter Qualified Codes: S00.93XA - Contusion of unspecified part of head, initial encounter
[2016-10-18 14:19] VITALS: BP 130/73; PULSE 62; O2SAT 94
== END 2016-10-18 14:19 | disposition home or self-care (01) ==
LOC: C.EDB 11:32 → C.EDD 14:19
DX: S01.01XA Laceration without foreign body of scalp, initial encounter (principal); W01.198A Fall on same level from slipping, tripping and stumbling with subsequent striking against other object, initial encounter; Y93.89 Activity, other specified; Z79.4 Long term (current) use of insulin; Z79.899 Other long term (current) drug therapy; E11.9 Type 2 diabetes mellitus without complications; E78.5 Hyperlipidemia, unspecified; E03.9 Hypothyroidism, unspecified; I10 Essential (primary) hypertension; M51.36 Other intervertebral disc degeneration, lumbar region; Z87.440 Personal history of urinary (tract) infections; Z85.3 Personal history of malignant neoplasm of breast; Z90.10 Acquired absence of unspecified breast and nipple; Z98.1 Arthrodesis status

== ENCOUNTER → 2017-01-28 | Outpatient (CLI) | payer BC ==
[~2017-01-28] MED LIST changes: +ERGO500037 PO; -GABA-113 PO; +INSDGI SQ; +INSU1INJ2 SQ; -INSUINJ12 SC; -INSUINJ14 SC; -LVQ250 PO; +LYR100 PO; +NVLG SQ; -TMFUDL30 PO; -VTMD PO
[2017-01-28 14:12] LABS: ESTIMATED AVERAGE GLUCOSE 143 mg/dl; HA1C FLAG Normal (Normal)
== END | disposition home or self-care (01) ==
LOC: C.LABBC 11:42
PROVIDERS: ATTEND Nurse Practitioner Family
DX: E11.9 Type 2 diabetes mellitus without complications (principal); Z79.4 Long term (current) use of insulin

== ENCOUNTER → 2017-04-22 | Outpatient (CLI) | payer BC ==
[2017-04-22 16:54] LABS: HEMATOCRIT 41.8 % (37-47); MEAN CELL VOLUME 85.3 fL (80-100); MEAN CORPUSCULAR HEMOGLOBIN 28.6 pg (25-34); MEAN CORPUSCULAR HGB CONC 33.5 g/dl (32-36); MEAN PLATELET VOLUME 11.7 fL (7.4-10.4); PLATELET COUNT 233 K/uL (130-400); RED CELL DISTRIBUTION WIDTH CV 16.3 % (11.5-14.5); RED CELL DISTRIBUTION WIDTH SD 51.1 fL (36.4-46.3); WHITE BLOOD COUNT 12.56 K/uL (4.8-10.8)
[2017-04-22 18:32] LABS: LDL CHOLESTEROL CALCULATED 54 mg/dl
[2017-04-22 20:01] LABS: ALBUMIN 3.9 gm/dl (3.4-5.0); ALKALINE PHOSPHATASE 123 U/L (45-117); ALT/SGPT 25 U/L (12-78); AST/SGOT 23 U/L (15-37); BLOOD UREA NITROGEN 27 mg/dl (7-18); CALCIUM 9.7 mg/dl (8.5-10.1); CARBON DIOXIDE 31 mmol/L (21-32); CHOLESTEROL 115 mg/dl (0-200); CREATININE 1.41 mg/dl (0.60-1.20); GLUCOSE 53 mg/dl (70-99); POTASSIUM 3.5 mmol/L (3.5-5.1); SODIUM 139 mmol/L (136-145); TOTAL PROTEIN 8.8 gm/dl (6.4-8.2)
[2017-04-23 06:53] LABS: HEMOGLOBIN A1C 6.8 % (4.5-5.6)
== END | disposition home or self-care (01) ==
LOC: C.LABBC 13:48
PROVIDERS: ATTEND Internal Medicine Nephrology
DX: N18.3 Chronic kidney disease, stage 3 (moderate) (principal); I10 Essential (primary) hypertension; R60.9 Edema, unspecified; E55.9 Vitamin D deficiency, unspecified; E03.9 Hypothyroidism, unspecified; E78.5 Hyperlipidemia, unspecified; E11.29 Type 2 diabetes mellitus with other diabetic kidney complication; E11.9 Type 2 diabetes mellitus without complications

== ENCOUNTER → 2017-06-24 | Outpatient (CLI) | payer BC ==
--- NOTE | 2017-06-24 15:41 | DIAGNOSTIC IMAGING REPORT ---
CHEST 2 VIEWS ROUTINE HISTORY: N18.3 Stage III chronic kidney disease I10 [id number] Rig COMPARISON: Chest 02/11/2016. FINDINGS: The heart is stable in size. No pneumothorax. Surgical clips within the left axilla. A few linear densities at the left lung base. No evidence for pulmonary edema. No new focal lung consolidations to suggest pneumonia. No pleural effusions. Old, healed right-sided rib fracture. IMPRESSION: No significant change compared to the prior study. Chronic interstitial thickening and left basilar linear densities persist. Electronically signed by: Luis Lima M.D. 06/24/2017 3:40 PM Dictated Date/Time: 06/24/2017 3:29 PM
[2017-06-24 16:52] LABS: BASO % 0.1 %; BASO ABS # 0.02 K/uL (0-0.2); EOS % 0.3 %; EOS ABS # 0.04 K/uL (0-0.5); HEMATOCRIT 39.4 % (37-47); HEMOGLOBIN 12.9 g/dL (12.0-16.0); IG# 0.06 K/uL (0.00-0.02); LYMPH % 11.7 %; LYMPH ABS # 1.82 K/uL (1.2-3.4); MEAN CELL VOLUME 85.3 fL (80-100); MEAN CORPUSCULAR HEMOGLOBIN 27.9 pg (25-34); MEAN CORPUSCULAR HGB CONC 32.7 g/dl (32-36); MEAN PLATELET VOLUME 11.2 fL (7.4-10.4); MONO ABS # 0.93 K/uL (0.11-0.59); NEUT % 81.5 %; NEUT ABS # 12.71 K/uL (1.4-6.5); PLATELET COUNT 221 K/uL (130-400); RED CELL DISTRIBUTION WIDTH CV 15.5 % (11.5-14.5); RED CELL DISTRIBUTION WIDTH SD 48.1 fL (36.4-46.3); WHITE BLOOD COUNT 15.58 K/uL (4.8-10.8)
[2017-06-24 17:07] LABS: ALBUMIN 3.6 gm/dl (3.4-5.0); ALT/SGPT 22 U/L (12-78); AST/SGOT 24 U/L (15-37); BLOOD UREA NITROGEN 32 mg/dl (7-18); CALCIUM 8.7 mg/dl (8.5-10.1); CARBON DIOXIDE 30 mmol/L (21-32); CREATININE 1.54 mg/dl (0.60-1.20); GLUCOSE 108 mg/dl (70-99); POTASSIUM 4.1 mmol/L (3.5-5.1); SODIUM 138 mmol/L (136-145)
[2017-06-24 17:09] LABS: ALKALINE PHOSPHATASE 114 U/L (45-117); TOTAL PROTEIN 8.2 gm/dl (6.4-8.2)
== END | disposition home or self-care (01) ==
LOC: C.RADBC 14:29
PROVIDERS: ATTEND Physician Assistant Medical
DX: E11.9 Type 2 diabetes mellitus without complications (principal); I10 Essential (primary) hypertension; N18.3 Chronic kidney disease, stage 3 (moderate); R50.9 Fever, unspecified; R68.89 Other general symptoms and signs

== ENCOUNTER → 2017-06-28 | Outpatient (CLI) | payer BC ==
[2017-06-28 13:52] LABS: BASO % 0.5 %; BASO ABS # 0.04 K/uL (0-0.2); EOS ABS # 0.16 K/uL (0-0.5); HEMATOCRIT 41.1 % (37-47); HEMOGLOBIN 13.6 g/dL (12.0-16.0); IG# 0.04 K/uL (0.00-0.02); LYMPH % 15.4 %; LYMPH ABS # 1.22 K/uL (1.2-3.4); MEAN CELL VOLUME 84.9 fL (80-100); MEAN CORPUSCULAR HEMOGLOBIN 28.1 pg (25-34); MEAN CORPUSCULAR HGB CONC 33.1 g/dl (32-36); MEAN PLATELET VOLUME 11.2 fL (7.4-10.4); MONO ABS # 0.87 K/uL (0.11-0.59); NEUT % 70.6 %; NEUT ABS # 5.57 K/uL (1.4-6.5); PLATELET COUNT 215 K/uL (130-400); RED CELL DISTRIBUTION WIDTH CV 15.4 % (11.5-14.5); RED CELL DISTRIBUTION WIDTH SD 47.5 fL (36.4-46.3)
[2017-06-28 16:57] LABS: BLOOD UREA NITROGEN 24 mg/dl (7-18); CALCIUM 9.4 mg/dl (8.5-10.1); CARBON DIOXIDE 34 mmol/L (21-32); CREATININE 1.64 mg/dl (0.60-1.20); GLUCOSE 99 mg/dl (70-99); POTASSIUM 4.2 mmol/L (3.5-5.1); SODIUM 137 mmol/L (136-145)
== END | disposition home or self-care (01) ==
LOC: C.LABBC 12:22
PROVIDERS: ATTEND Physician Assistant Medical
DX: N18.3 Chronic kidney disease, stage 3 (moderate) (principal); I12.9 Hypertensive chronic kidney disease with stage 1 through stage 4 chronic kidney disease, or unspecified chronic kidney disease; E11.29 Type 2 diabetes mellitus with other diabetic kidney complication

== ENCOUNTER → 2017-09-23 | Outpatient (CLI) | payer BC | END | disposition home or self-care (01) | LOC: C.LABBC 12:50 | PROVIDERS: ATTEND Internal Medicine Geriatric Medicine | DX: E03.9 Hypothyroidism, unspecified (principal) ==

== ENCOUNTER 2019-04-26 16:22 | Inpatient (IN) ==
[~2019-04-26 16:22] MED LIST changes: -ATOR-22 PO; -ERGO500037 PO; -FURO-85 PO; -INSDGI SQ; -INSU1INJ2 SQ; +INSULIN ASPART 100 UNITS/ML 3 ML PEN SC SCH; -LEVO75TA5 PO; -LYR100 PO; -NVLG SQ
[2019-04-26] MEDS ORDERED: CEFEPIME 2,000 MG/20 ML VIAL IV STA (16:50)
[2019-04-26] MEDS ORDERED: SODIUM CHLORIDE 0.9% 1000ML 1,000 ML IV ONE (16:50)
[2019-04-26] MEDS ORDERED: ACETAMINOPHEN 1,000 MG/100 ML VIAL IV STA (16:50)
--- NOTE | 2019-04-26 16:59 | Emergency Department Note ---
ED Provider Note CHIEF COMPLAINT: Confusion and fever HISTORY OF PRESENT ILLNESS: The patient is a 78 year old female who presents to the ER because of confusion and fever. The patient also notes the following associated symptoms: Weakness, chills, shortness of breath. The symptoms started over the last 24 hours and are worsening and severe. The patient has tried the following for relief : Nothing The patient is a 78-year-old female who presents by private vehicle for confusion and fever. The patient was last spoken to yesterday and she seemed fine. This morning, the family could not get in touch with her and they went to check on her. She was in bed, she was confused, she had a fever. She was weak. She was brought to the hospital for evaluation. The patient denies any pain currently although she did tell her family she had a headache earlier. There has been no reported trauma. She denies being short of breath. She denies any abdominal pain. There has been no vomiting or diarrhea. The history is limited given the patient's mental state currently. I did speak to the daughter at length. The daughter states the patient has a history of UTIs. Given the mental state, the history is limited. REVIEW OF SYSTEMS: See HPI for pertinent positives and negatives. ROS is limited secondary to mental state. PMHx/PSHx: See Below SOCIAL HISTORY: See Below. PHYSICAL EXAM: GENERAL: Patient is in moderate distress. Shivering HEENT: No acute trauma, normocephalic atraumatic, mucous membranes quite dry, no nasal congestion, no scleral icterus. NECK: No stridor, no adenopathy, no meningismus, trachea is midline. LUNGS: Clear to auscultation bilaterally, no wheeze, no rhonchi, breath sounds equal. HEART: Without murmurs gallops or rubs, mildly tachycardic with a regular rhythm. ABDOMEN: Soft, nontender, bowel sounds positive, no hernias, no peritonitis. EXTREMITIES: No cyanosis or edema, full range of motion of all the joints w ithout pain or difficulty, no signs for acute trauma. NEUROLOGIC: Somewhat confused but answers simple questions and follow simple commands, no acute motor or sensory deficits, no focal weakness. SKIN: No jaundice, no diaphoresis. She does have areas of skin breakdown across her right side in the shoulder and hip primarily. There is some skin breakdown to the left arm as well. No signs of surrounding erythema. As per the daughter, the skin breakdown has been an ongoing issue for years. DIFFERENTIAL DIAGNOSIS: Sepsis, UTI, pneumonia, metabolic, electrolyte abnormalities, cardiac sources, intracerebral event, toxicologic, neurologic, as well as other pathologies. EMERGENCY DEPARTMENT COURSE: The patient was seen and examined, laboratory testing was ordered, imaging was ordered, antibiotics and fluids were ordered. I spoke to the family and the patient about my findings. I spoke to case management, the on-call hospitalist was consulted. Admission was warranted. MEDICAL DECISION MAKING: There is a moderate leukocytosis, this is consistent with infection. No concerning anemia. No coagulopathy. Renal panel testing does show some renal insufficiency with a creatinine of 1.79. Lactic acid level was slightly elevated at 2.1, this is consistent with infection and/or dehydration. There were a few subtle liver enzyme elevations. Procalcitonin level was not elevated. Urinalysis was consistent with infection with +4 bacteria, urine culture and blood cultures are pending. Influenza testing was negative. Chest film suggested some patchy infiltrates bilaterally, there was no pneumothorax or CHF. Chest CT does show some potential upper lobe infiltrates. EKG shows a normal sinus rhythm, no acute ischemia. Cardiac enzyme testing x1 is not consistent with acute cardiac injury. The patient was aggressively managed. She presents confused and febrile. She received IV saline for hydration. She was given IV Tylenol for her fever. She received IV cefepime as antibiotic coverage. A bladder scan was done, she had around 200 cc of urine present, she was not retaining an excessive amount, a Saucedo catheter was not felt needed. I talked to the patient and her family about my findings, I do think she meets criteria for sepsis. The source appears to be the urine and also maybe even the lungs. Further care in the hospital is clearly warranted. I spoke to case management, I did consult the on-call hospitalist. The patient is currently resting comfortably and seems improved from when she first arrived. EKG: There is a normal sinus rhythm with a rate of 81. There is no ST elevation, there are no PVCs. There are nonspecific ST changes. QTC is 422. Continuous Cardiac Monitoring: An order was placed for continuous cardiac monitoring. The monitor shows a rate of 61 with normal sinus rhythm. Critical Care Note: I have personally spent greater than 45 minutes of critical care time in the direct management of this patient. This includes bedside care, interpretation of diagnostic studies, and testing, discussion with consultants, patient, and family members, and other required patient management activities. This 45 minutes is in excess of all separately billable procedures. Impression & Plan Acute confusion, Acute dehydration, Pneumonia, Acute UTI Past Med/Surg History Medical History Chronic kidney disease (Chronic) Stage III w/ baseline Cr 1.3-1.6mg/dL. 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 Complicated with secondary hyperparathyroidism. Followed by [facility] Hypertension (Chronic) Long standing. Managed with diltiazem + furosemide Vitamin D deficiency (Chronic) Surgical History H/O breast surgery H/O: hysterectomy H/O: hysterectomy History of bladder surgery History of cataract surgery History of detached retina repair Family History Brother Diabetes Mother Cancer Throat cancer Father Cancer Pulmonary embolism Unknown Diabetes Hypertension Breast cancer Social History Feels Safe at Home: Yes Smoking Status: Never smoker Results & Data Vital Signs Vital Signs - 24 hr 04/26/19 16:25 04/26/19 16:50 04/26/19 17:40 Temperature 39.2 C H Temperature Source Oral Pulse Rate 100 H Pulse Rate [Right Finger] 78 Respiratory Rate 22 22 Respiratory Effort / Characteristics Non-Labored Non-Labored Respiratory Depth Normal Blood Pressure 116/63 Blood Pressure [Right Arm] 155/66 H Blood Pressure Mean 80 Blood Pressure Mean [Right Arm] 95 Blood Pressure Position Sitting Pulse Oximetry 88 L 88 L 93 Oxygen Delivery Method Room Air Nasal Cannula Nasal Cannula Oxygen Flow Rate 2 2 Sepsis Recent Fever Within 48 Hours Yes Sepsis New/Unexplained Change in Mental Status No Sepsis Action Taken by Nursing No Action Required 04/26/19 18:45 04/26/19 18:51 Temperature 38.0 C H Temperature Source Oral Pulse Rate Pulse Rate [Right Finger] 92 H Respiratory Rate 20 Respiratory Effort / Characteristics Respiratory Depth Blood Pressure Blood Pressure [Right Arm] 136/71 Blood Pressure Mean Blood Pressure Mean [Right Arm] 92 Blood Pressure Position Pulse Oximetry 93 Oxygen Delivery Method Nasal Cannula Oxygen Flow Rate 2 Sepsis Recent Fever Within 48 Hours Sepsis New/Unexplained Change in Mental Status Sepsis Action Taken by Detention Medications Current Medication List: was personally reviewed by me Laboratory Data Attestation: I reviewed the patient's lab results. Result diagrams: 04/26/19 17:05 04/26/19 17:05 Lab Results 04/26/19 04/26/19 04/26/19 Range/Units 17:01 17:01 17:05 WBC 16.25 H (4.8-10.8) K/uL RBC 4.54 (4.2-5.4) M/uL Hgb 12.8 (12.0-16.0) g/dL Hct 38.5 (37-47) % MCV 84.8 (80-100) fL MCH 28.2 (25-34) pg MCHC 33.2 (32-36) g/dL RDW Std Deviation 45.8 (36.4-46.3) fL RDW Coeff of Emile 14.8 H (11.5-14.5) % Plt Count 244 (130-400) K/uL MPV 11.0 H (7.4-10.4) fL Immature Gran % (Auto) 0.6 % Neut % (Auto) 78.4 % Lymph % (Auto) 8.0 % [place] % (Auto) 12.1 % Eos % (Auto) 0.7 % Baso % (Auto) 0.2 % Immature Gran # (Auto) 0.09 H (0.00-0.02) K/uL Neut # (Auto) 12.75 H (1.4-6.5) K/uL Lymph # (Auto) 1.30 (1.2-3.4) K/uL [place] # (Auto) 1.96 H (0.11-0.59) K/uL Eos # (Auto) 0.11 (0-0.5) K/uL Baso # (Auto) 0.04 (0-0.2) K/uL PT (9.0-12.0) Seconds INR (0.9-1.1) APTT (21.0-31.0) Seconds PTT Ratio Sodium (136-145) mmol/L Potassium (3.5-5.1) mmol/L Chloride (98-107) mmol/L Carbon Dioxide (21-32) mmol/L Anion Gap (3-11) BUN (7-18) mg/dl Creatinine (0.6-1.2) mg/dl Est Cr Clr Drug Dosing ml/min Est GFR ( Amer) Est GFR (Non-Af Amer) BUN/Creatinine Ratio (10-20) Glucose (70-99) mg/dl Lactate (0.4-2.0) mmol/L Calcium (8.5-10.1) mg/dl Magnesium (1.8-2.4) mg/dl Total Bilirubin (0.2-1) mg/dl AST (15-37) U/L ALT (12-78) U/L Alkaline Phosphatase (45-117) U/L Troponin I (0-0.045) ng/ml Total Protein (6.4-8.2) gm/dl Albumin (3.4-5.0) gm/dl Globulin (2.5-4.0) gm/dl Albumin/Globulin Ratio (0.9-2) Procalcitonin (0-0.5) ng/ml Urine Color Yellow Urine Appearance Cloudy A (Clear) Urine pH 7.5 (4.5-7.5) Ur Specific [place] 1.020 (1.000-1.030) Urine Protein 1+ H (Negative) Urine Glucose (UA) Negative (Negative) Urine Ketones Negative (Negative) Urine Blood 1+ H (Negative) Urine Nitrite Negative (Negative) Urine Bilirubin Negative (Negative) Urine Urobilinogen Negative (Negative) Ur Leukocyte Esterase 1+ H (Negative) Urine RBC 5-10 H (0-4) /hpf Urine WBC 10-30 H (0-5) /hpf Ur Epithelial Cells 5-10 H (0-5) /lpf Urine Bacteria 4+ H (Negative) Influenza Type A (PCR) Neg for Influ A (Neg) Influenza Type B (PCR) Neg for Influ B (Neg) 04/26/19 04/26/19 04/26/19 Range/Units 17:05 17:05 17:05 WBC (4.8-10.8) K/uL RBC (4.2-5.4) M/uL Hgb (12.0-16.0) g/dL Hct (37-47) % MCV (80-100) fL MCH (25-34) pg MCHC (32-36) g/dL RDW Std Deviation (36.4-46.3) fL RDW Coeff of Emile (11.5-14.5) % Plt Count (130-400) K/uL MPV (7.4-10.4) fL Immature Gran % (Auto) % Neut % (Auto) % Lymph % (Auto) % [place] % (Auto) % Eos % (Auto) % Baso % (Auto) % Immature Gran # (Auto) (0.00-0.02) K/uL Neut # (Auto) (1.4-6.5) K/uL Lymph # (Auto) (1.2-3.4) K/uL [place] # (Auto) (0.11-0.59) K/uL Eos # (Auto) (0-0.5) K/uL Baso # (Auto) (0-0.2) K/uL PT 11.4 (9.0-12.0) Seconds INR 1.1 (0.9-1.1) APTT 28.1 (21.0-31.0) Seconds PTT Ratio 1.0 Sodium 134 L (136-145) mmol/L Potassium 4.3 (3.5-5.1) mmol/L Chloride 100 (98-107) mmol/L Carbon Dioxide 28 (21-32) mmol/L Anion Gap 6.0 (3-11) BUN 32 H (7-18) mg/dl Creatinine 1.79 H (0.6-1.2) mg/dl Est Cr Clr Drug Dosing 25.3 ml/min Est GFR ( Amer) 30.9 Est GFR (Non-Af Amer) 26.7 BUN/Creatinine Ratio 17.9 (10-20) Glucose 117 H (70-99) mg/dl Lactate 2.1 H* (0.4-2.0) mmol/L Calcium 9.1 (8.5-10.1) mg/dl Magnesium 2.2 (1.8-2.4) mg/dl Total Bilirubin 1.5 H (0.2-1) mg/dl AST 28 (15-37) U/L ALT 18 (12-78) U/L Alkaline Phosphatase 133 H (45-117) U/L Troponin I < 0.015 (0-0.045) ng/ml Total Protein 8.6 H (6.4-8.2) gm/dl Albumin 2.8 L (3.4-5.0) gm/dl Globulin 5.8 H (2.5-4.0) gm/dl Albumin/Globulin Ratio 0.5 L (0.9-2) Procalcitonin (0-0.5) ng/ml Urine Color Urine Appearance (Clear) Urine pH (4.5-7.5) Ur Specific [place] (1.000-1.030) Urine Protein (Negative) Urine Glucose (UA) (Negative) Urine Ketones (Negative) Urine Blood (Negative) Urine Nitrite (Negative) Urine Bilirubin (Negative) Urine Urobilinogen (Negative) Ur Leukocyte Esterase (Negative) Urine RBC (0-4) /hpf Urine WBC (0-5) /hpf Ur Epithelial Cells (0-5) /lpf Urine Bacteria (Negative) Influenza Type A (PCR) (Neg) Influenza Type B (PCR) (Neg) 04/26/19 Range/Units 17:05 WBC (4.8-10.8) K/uL RBC (4.2-5.4) M/uL Hgb (12.0-16.0) g/dL Hct (37-47) % MCV (80-100) fL MCH (25-34) pg MCHC (32-36) g/dL RDW Std Deviation (36.4-46.3) fL RDW Coeff of Emile (11.5-14.5) % Plt Count (130-400) K/uL MPV (7.4-10.4) fL Immature Gran % (Auto) % Neut % (Auto) % Lymph % (Auto) % [place] % (Auto) % Eos % (Auto) % Baso % (Auto) % Immature Gran # (Auto) (0.00-0.02) K/uL Neut # (Auto) (1.4-6.5) K/uL Lymph # (Auto) (1.2-3.4) K/uL [place] # (Auto) (0.11-0.59) K/uL Eos # (Auto) (0-0.5) K/uL Baso # (Auto) (0-0.2) K/uL PT (9.0-12.0) Seconds INR (0.9-1.1) APTT (21.0-31.0) Seconds PTT Ratio Sodium (136-145) mmol/L Potassium (3.5-5.1) mmol/L Chloride (98-107) mmol/L Carbon Dioxide (21-32) mmol/L Anion Gap (3-11) BUN (7-18) mg/dl Creatinine (0.6-1.2) mg/dl Est Cr Clr Drug Dosing ml/min Est GFR ( Amer) Est GFR (Non-Af Amer) BUN/Creatinine Ratio (10-20) Glucose (70-99) mg/dl Lactate (0.4-2.0) mmol/L Calcium (8.5-10.1) mg/dl Magnesium (1.8-2.4) mg/dl Total Bilirubin (0.2-1) mg/dl AST (15-37) U/L ALT (12-78) U/L Alkaline Phosphatase (45-117) U/L Troponin I (0-0.045) ng/ml Total Protein (6.4-8.2) gm/dl Albumin (3.4-5.0) gm/dl Globulin (2.5-4.0) gm/dl Albumin/Globulin Ratio (0.9-2) Procalcitonin 0.40 (0-0.5) ng/ml Urine Color Urine Appearance (Clear) Urine pH (4.5-7.5) Ur Specific [place] (1.000-1.030) Urine Protein (Negative) Urine Glucose (UA) (Negative) Urine Ketones (Negative) Urine Blood (Negative) Urine Nitrite (Negative) Urine Bilirubin (Negative) Urine Urobilinogen (Negative) Ur Leukocyte Esterase (Negative) Urine RBC (0-4) /hpf Urine WBC (0-5) /hpf Ur Epithelial Cells (0-5) /lpf Urine Bacteria (Negative) Influenza Type A (PCR) (Neg) Influenza Type B (PCR) (Neg) Administered Medications Discontinued Medications Sodium Chloride (Nss 1000ml) 1,000 mls @ 999 mls/hr IV .[id number] ONE Stop: 04/26/19 17:50 Last Infusion: 04/26/19 18:44 Dose: 0 mls/hr Documented by: [id number] Admin: 04/26/19 17:34 Dose: 999 mls/hr Documented by: [id number] Cefepime HCl (Maxipime) 2,000 mg in 20 mls @ 5 mls/min IV NOW STA; Protocol Stop: 04/26/19 16:53 Last Admin: 04/26/19 17:34 Dose: 5 mls/min Documented by: [id number] Acetaminophen (Ofirmev) 1,000 mg in 100 mls @ 400 mls/hr IV NOW STA Stop: 04/26/19 17:04 Last Infusion: 04/26/19 18:15 Dose: 0 mls/hr Documented by: [id number] Admin: 04/26/19 17:34 Dose: 400 mls/hr Documented by: [id number] Imaging Data Radiologist's Impression: XR chest 1V portable CLINICAL HISTORY: SEPSIS COMPARISON STUDY: 02/11/2016 FINDINGS: The heart is at the upper limits of normal in size. There are bilatera l interstitial opacities which may represent progression of chronic interstitial lung disease. It is however difficult to exclude a superimposed interstitial infectious process. Clinical and radiographic follow-up is recommended. There are no pleural effusions. Surgical clips project over the left breast. IMPRESSION: Nonspecific bilateral interstitial opacities. This could represent progression of chronic interstitial lung disease, or a superimposed interstitial infectious process. Clinical and radiographic follow-up is recommended. CT chest wo con CLINICAL HISTORY: cough, possible pneumonia COMPARISON STUDY: Chest x-ray dated 04/26/2019 CT DOSE: 364.14 mGycm TECHNIQUE: CT of the thorax was performed from the thoracic inlet to the lung bases. Images are reviewed in the axial, sagittal, and coronal planes. IV contrast was not administered for this examination. A dose lowering technique was utilized adhering to the principles of ALARA. FINDINGS: Thyroid: Imaged portions of the thyroid gland are normal in appearance. Thoracic aorta: The thoracic aorta is normal in course and caliber, noting standard 3 vessel arch anatomy. Heart: There are minor coronary artery calcifications. There is mild prominence the main pulmonary artery segment. Lungs and pleural spaces: There are ill-defined upper lobe nodular opacities, statistically infectious/inflammatory. There is minor bronchial wall thickening. There is no lobar consolidation. Basilar opacities and lingular opacities are likely atelectatic. Mediastinum: There is no mediastinal lymphadenopathy. [place]: There is no evidence for pathologic hilar adenopathy given the limitations of a noncontrast study Axilla: There is no evidence of pathologic axillary lymphadenopathy Upper abdomen: Partially visualized upper abdominal viscera is within normal limits. Skeletal structures: There are no lytic or blastic osseous lesions. IMPRESSION: 1. Ill-defined upper lobe nodular densities, statistically infectious/inflammatory. There is minor bronchial wall thickening. 2. Lingular and basilar opacities, likely atelectatic Blood Pressure Blood Pressure Findings: Elevated blood pressure Blood Pressure Disposition: further management by hospitalist Discharge Plan Visit Data Chief Complaint: Illness Stated Complaint: COUGH, SOB, FEVER, LETHARGIC ED Provider: Zhao Navarrete Discharge Problem: Acute confusion, Acute dehydration, Pneumonia, Acute UTI Patient Disposition: Being Evaluated by Hospitalist Condition: Fair Forms Stand Alone Forms: [facility] Prescriptions Prescriptions: No Action furosemide 20 mg tablet 20 mg PO DAILY Qty: 90 RF: 3 (DME) lancets [OneTouch Delica Lancets] 33 gauge misc See Dose Instructions .ROUTE .MEDSUPPLY Qty: 360 RF: 3 pen needle, diabetic [BD Ultra-Fine Mini Pen Needle] 31 gauge x 3/16" needle See Rx Instructions .ROUTE .COMPLEX Qty: 540 RF: 0 atorvastatin 20 mg tablet 20 mg PO DAILY Qty: 90 RF: 0 pregabalin 100 mg capsule 100 mg PO BID RF: 0 (DME) OneTouch Ultra Blue Test Strip strip See Dose Instructions .ROUTE .MEDSUPPLY Qty: 10 RF: 0 diltiazem HCl 120 mg capsule,extended release 24 hr 120 mg PO DAILY Qty: 90 RF: 3 ergocalciferol (vitamin D2) 50,000 unit capsule 50,000 units PO MONTHLY Qty: 12 RF: 0 levothyroxine 75 mcg tablet 75 mcg PO Q OTHER DAY RF: 0 levothyroxine 50 mcg tablet 50 mcg PO Q OTHER DAY RF: 0 insulin aspart U-100 [Novolog Flexpen U-100 Insulin] 100 unit/mL (3 mL) insulin pen 0 unit SQ TIDM RF: 0 Basaglar KwikPen U-100 Insulin 100 unit/mL (3 mL) insulin pen 14 units SQ QPM RF: 0 Referrals Referrals: Celso Wiseman MD [Primary Care Provider] - Discharge Problem: Pneumonia Qualifiers: Pneumonia type: due to unspecified organism Laterality: bilateral Lung location: upper lobe of lung Qualified Code(s): J18.9 - Pneumonia, unspecified organism
--- NOTE | 2019-04-26 17:20 | XRay Report ---
XR chest 1V portable CLINICAL HISTORY: SEPSIS COMPARISON STUDY: 02/11/2016 FINDINGS: The heart is at the upper limits of normal in size. There are bilateral interstitial opacit ies which may represent progression of chronic interstitial lung disease. It is however difficult to exclude a superimposed interstitial infectious process. Clinical and radiographic follow-up is recomm ended. There are no pleural effusions. Surgical clips project over the left breast. IMPRESSION: Nonspecific bilateral interstitial opacities. This could represent progression of chronic interstitial lung disease, or a superimposed interstitial infectious process. Clinical and radiograp hic follow-up is recommended. ACT 112: Negative or not required by law. Electronically signed by: Barrera Romero M.D. 04/26/2019 5:19 PM
[2019-04-26 17:28] LABS: Basophils # (auto) 0.04 K/uL (0-0.2); Basophils % (auto) 0.2 %; Eosinophils # (auto) 0.11 K/uL (0-0.5); Eosinophils % (auto) 0.7 %; Hematocrit (blood only) 38.5 % (37-47); Hemoglobin 12.8 g/dL (12.0-16.0); Immature Granulocytes # (auto) 0.09 K/uL (0.00-0.02); Immature Granulocytes % (auto) 0.6 %; Mean Corpuscular Hemoglobin 28.2 pg (25-34); Mean Corpuscular Hgb Conc 33.2 g/dL (32-36); Mean Corpuscular Volume 84.8 fL (80-100); Monocytes # (auto) 1.96 K/uL (0.11-0.59); Monocytes % (auto) 12.1 %; Neutrophils # (auto) 12.75 K/uL (1.4-6.5); Neutrophils % (auto) 78.4 %; Platelet Count 244 K/uL (130-400); RDW Coefficient of Variation 14.8 % (11.5-14.5); RDW Standard Deviation 45.8 fL (36.4-46.3); Red Blood Count 4.54 M/uL (4.2-5.4); White Blood Count 16.25 K/uL (4.8-10.8)
[2019-04-26 17:33] LABS: Appearance Urine Cloudy (Clear); Bilirubin Urine Negative (Negative); Blood Urine 1+ (Negative); Color Urine Yellow; Glucose Urine UA Negative (Negative); Ketones Urine Negative (Negative); Leukocyte Esterase Urine 1+ (Negative); Nitrite Urine Negative (Negative); Urobilinogen Urine Negative (Negative); pH Urine 7.5 (4.5-7.5)
[2019-04-26 17:35] LABS: Protein Urine 1+ (Negative)
[2019-04-26 17:48] LABS: Sulfosalicylic Acid Urine Positive (Negative)
[2019-04-26 17:49] LABS: INR 1.1 (0.9-1.1); Partial Thromboplastin Time 28.1 Seconds (21.0-31.0); Prothrombin Time 11.4 Seconds (9.0-12.0)
[2019-04-26 17:50] LABS: Alanine Aminotransferase 18 U/L (12-78); Albumin Level 2.8 gm/dl (3.4-5.0); Aspartate Aminotransferase 28 U/L (15-37); BUN Creatinine Ratio 17.9 (10-20); Blood Urea Nitrogen 32 mg/dl (7-18); Calcium 9.1 mg/dl (8.5-10.1); Carbon Dioxide 28 mmol/L (21-32); Chloride 100 mmol/L (98-107); Creatinine Clr Calc Pharmacy 25.3 ml/min; Est GFR (African American) 30.9; Est GFR (Non-African American) 26.7; Glucose 117 mg/dl (70-99); Magnesium 2.2 mg/dl (1.8-2.4); Potassium 4.3 mmol/L (3.5-5.1); Sodium 134 mmol/L (136-145)
[2019-04-26 17:50] LABS: Bacteria Urine 4+ (Negative)
[2019-04-26 17:55] LABS: Albumin Globulin Ratio 0.5 (0.9-2); Alkaline Phosphatase 133 U/L (45-117); Bilirubin,Total 1.5 mg/dl (0.2-1); Globulin 5.8 gm/dl (2.5-4.0); Total Protein 8.6 gm/dl (6.4-8.2); Troponin I < 0.015 ng/ml (0-0.045)
[2019-04-26 18:00] LABS: Influenza A virus by PCR Neg for Influ A (Neg); Influenza B virus by PCR Neg for Influ B (Neg)
--- NOTE | 2019-04-26 18:45 | History & Physical Report ---
Date of Service April 26, 2019 Assessment & Plan (1) Sepsis: Patient being admitted for acute sepsis with mental status change. Unclear source, consider possible pneumonia versus urinary tract infection. Await blood and urine cultures, will ask for sputum culture if one can be produced. Noncontrast CT of the chest was ordered by the emergency room. Patient received a dose of Maxipime, can private branch exchange service adviser to Rocephin and Zithromax for community-acquired pneumonia versus uncomplicated UTI. Recheck lactate per protocol. Nebs as needed. We will ask PT/OT to evaluate as well. (2) Hyperlipidemia: Patient on atorvastatin 20 mg daily, can continue as per outpatient. (3) Hypertension: Blood pressure stable, there may be a small degree of dehydration. Patient is on furosemide 20 mg daily which we will hold. Continue other medications such as diltiazem 120 mg daily. (4) Diabetes mellitus, type II: Patient is on Basaglar 14units nightly which we will continue. Will start sliding scale with an ADA diet. History of Present Illness Primary Care Provider: Celso Wiseman MD This is a 70-year-old female with past medical history of hyperlipidemia, hypertension, chronic kidney disease, and type 2 diabetes mellitus that presents today with cough and altered mental status. Patient is a somewhat limited historian but daughter is at bedside who is able to give detailed history. Daughter tells me that the patient is occasionally forgetful at baseline but typically does well. She lives alone. She was complaining earlier in the week of some nasal congestion but did not seem to be that sick. She took her grandchildren to the movies earlier in the week without any issues. Patient developed a dry hacking cough about 48 hours ago. She did not mention any fevers or significant shortness of breath. Was found later that 1 of the grandchildren had an uncomplicated bronchitis and family suspects that this is the source of the patient's URI. Yesterday the patient called her primary care physician in regards her congestion and was told it was likely common cold and was advised to continue supportive measures. Earlier this morning, the daughter called the patient at home multiple times with a negative answer. Her stopped by around 1:30 in the afternoon and found that the patient seemed to be a little more confused and had a significant cough. He also noted a temp of around 100 F. At that point the patient was brought to the emergency room for further evaluation. At time my evaluation, I note that the patient is very hard of hearing. She is oriented to person and place. She does not appear to be in any significant res piratory distress although she is weak and does exhibit a dry cough. Vitals are otherwise stable and she is good on 2 L nasal cannula. Allergies Allergy/AdvReac Type Severity Reaction Status Date / Time timolol [From Timoptic] Allergy Unknown Verified 04/26/19 18:34 Penicillins AdvReac Unknown PT CLAIMS Verified 04/26/19 18:34 PCN DOESN'T WORK Home Medications Home Medications Medication Instructions Recorded Confirmed Type furosemide 20 mg tablet 20 mg PO DAILY #90 tab 08/11/18 04/26/19 Rx atorvastatin 20 mg tablet 20 mg PO DAILY #90 tab 10/07/18 04/26/19 History blood sugar diagnostic #10 ea 10/07/18 12/22/18 History diltiazem HCl 120 mg capsule,24 120 mg PO DAILY #90 cap 10/07/18 04/26/19 Rx hr,extended release ergocalciferol (vitamin D2) 1,250 50,000 units PO MONTHLY #12 cap 11/17/18 04/26/19 Rx mcg (50,000 unit) capsule pregabalin 100 mg capsule 100 mg PO BID cap 11/17/18 04/26/19 History lancets 33 gauge #360 ea 01/12/19 Rx pen needle, diabetic 31 gauge x See Rx Instructions .ROUTE 02/09/19 Rx 3/16" .COMPLEX #540 each insulin aspart U-100 [Novolog 0 unit SQ TIDM 04/26/19 04/26/19 History Flexpen U-100 Insulin] insulin glargine [Basaglar KwikPen 14 units SQ QPM 04/26/19 04/26/19 History U-100 Insulin] levothyroxine 50 mcg PO Q OTHER DAY 04/26/19 04/26/19 History levothyroxine 75 mcg PO Q OTHER DAY 04/26/19 04/26/19 History Past Med/Surg History Social History Feels Safe at Home: Yes Smoking Status: Never smoker Review of Systems Review of Systems: Unobtainable due to cognitive status Physical Exam Constitutional: cooperative; no acute distress and not in distress [id number] Neck: trachea midline, no thyromegaly Respiratory: normal respiratory effort Auscultation: lungs clear to auscultation bilaterally, + diminished lung sounds and + rales (More prominent over left base. No dullness to percussion); no crackles, no rhonchi and no wheezes Cardiovascular: Rate/Rhythm: regular rate and regular rhythm Heart Sounds: normal S1 and normal S2 Vessels: no JVD and no carotid bruit Gastrointestinal (Abdomen): Inspection/Auscultation: abdomen normal to inspection Percussion/Palpation: abdomen soft; abdomen nontender, no guarding, abdomen not rigid and no hepatosplenomegaly Skin: no rashes, warm and dry Neurologic: awake and + confused Results & Data Vital Signs (Past 12 Hours) Vital Signs Temp Pulse Pulse Resp BP BP Pulse Ox 04/26/19 17:40 78 22 155/66 H 93 04/26/19 16:50 88 L 04/26/19 16:25 39.2 C H 100 H 22 116/63 88 L Laboratory Results WBCs of 16.2. Hemoglobin of 12.8 with hematocrit of 38.5. Platelets of 244. Sodium 134, potassium 4.3, chloride 100, CO2 28, BUN 32 with a creatinine 1.79 which appears to be slightly elevated from baseline. Glucose 117. Lactate of 2.1. Total bilirubin of 1.5. Alk phos 133. Urine was cloudy with 1+ protein, 1+ blood, 1+ leuk esterases. Nitrites were negative. 1030 WBCs, 510 RBCs. 4+ bacteria. Influenza was negative. Diagnostic Findings XR chest 1V portable CLINICAL HISTORY: SEPSIS COMPARISON STUDY: 02/11/2016 FINDINGS: The heart is at the upper limits of normal in size. There are bilateral interstitial opacities which may represent progression of chronic interstitial lung disease. It is however difficult to exclude a superimposed interstitial infectious process. Clinical and radiographic follow-up is recommended. There are no pleural effusions. Surgical clips project over the left breast. IMPRESSION: Nonspecific bilateral interstitial opacities. This could represent progression of chronic interstitial lung disease, or a superimposed interstitial infectious process. Clinical and radiographic follow-up is recommended. PG Care Time/CCT Total # of Minutes Spent Total Time Spent with Patient: Total time spent is greater than 50% in coordination of care (as documented) at patient's floor/unit and/or counseling patient: Coding Level of Care Code 61625 Initial Inpt Care Lvl 3 Diagnoses Sepsis A41.9 Hyperlipidemia E78.5 Hypertension I10 Diabetes mellitus, type II E11.9
--- NOTE | 2019-04-26 19:22 | CT Scan Report ---
CT chest wo con CLINICAL HISTORY: cough, possible pneumonia COMPARISON STUDY: Chest x-ray dated 04/26/2019 CT DOSE: 364.14 mGycm TECHNIQUE: CT of the thorax was performed from the thoracic inlet to the lung bases. Images are revi ewed in the axial, sagittal, and coronal planes. IV contrast was not administered for this examinatio n. A dose lowering technique was utilized adhering to the principles of ALARA. FINDINGS: Thyroid: Imaged portions of the thyroid gland are normal in appearance. Thoracic aorta: The thoracic aorta is normal in course and caliber, noting standard 3 vessel arch kike kimberly. Heart: There are minor coronary artery calcifications. There is mild prominence the main pulmonary ar ainsley segment. Lungs and pleural spaces: There are ill-defined upper lobe nodular opacities, statistically infectiou s/inflammatory. There is minor bronchial wall thickening. There is no lobar consolidation. Basilar op acities and lingular opacities are likely atelectatic. Mediastinum: There is no mediastinal lymphadenopathy. [place]: There is no evidence for pathologic hilar adenopathy given the limitations of a noncontrast anthony dy Axilla: There is no evidence of pathologic axillary lymphadenopathy Upper abdomen: Partially visualized upper abdominal viscera is within normal limits. Skeletal structures: There are no lytic or blastic osseous lesions. IMPRESSION: 1. Ill-defined upper lobe nodular densities, statistically infectious/inflammatory. There is minor br onchial wall thickening. 2. Lingular and basilar opacities, likely atelectatic ACT 112: Negative or not required by law. Electronically signed by: Barrera Romero M.D. 04/26/2019 7:20 PM
[2019-04-26] MEDS ORDERED: ALBUTEROL 0.5% NEB SOLN 2.5 MG/0.5 ML VIAL NEB PRN (21:50)
[2019-04-26] MEDS ORDERED: GLUCOSE 40% GEL 15 GM TUBE PO PRN (21:50)
[2019-04-26] MEDS ORDERED: ONDANSETRON INJ 2 MG/ML 2 ML VIAL IV PRN (21:50)
[2019-04-26] MEDS ORDERED: CARBOHYDRATES FOR HYPOGLYCEMIA PO PRN (21:50)
[2019-04-26] MEDS ORDERED: GLUCOSE 10 TABS/TUBE PO PRN (21:50)
[2019-04-26] MEDS ORDERED: POLYETHYLENE (MIRALAX) 17 GM PACK PO PRN (21:50)
[2019-04-26] MEDS ORDERED: GLUCAGON FOR INJ 1 MG VIAL SQ PRN (21:50)
[2019-04-26] MEDS ORDERED: DEXTROSE 50% 50 ML SYRINGE IV PRN (21:50)
[2019-04-26] MEDS ORDERED: INSULIN GLARGINE SOLOSTAR 100 UNITS/ML 3 ML PEN SQ SCH (21:50)
[2019-04-26] MEDS ORDERED: HEPARIN SOD 5,000 UNIT/0.5 ML VIAL SQ SCH (22:00)
[2019-04-26] MEDS ORDERED: PHARMACY GLYCEMIC MGMT CONSULT PRN (22:15)
[2019-04-26] MEDS ORDERED: INSULIN ASPART 100 UNITS/ML 3 ML PEN SC SCH (22:30)
[2019-04-27] MEDS: AZITHROMYCIN 500 MG in DEXTROSE 5% 250 ML IV SCH ×2 (00:29→21:37)
[2019-04-27] MEDS: HEPARIN SOD 5,000 UNIT/0.5 ML VIAL SQ SCH ×3 (00:31→20:35)
[2019-04-27] MEDS: PREGABALIN 100 MG CAP PO SCH ×3 (00:39→20:35)
[2019-04-27] MEDS: cefTRIAXone SODIUM 1,000 MG/50 ML BAG IV SCH (02:43)
[2019-04-27] MEDS: INSULIN ASPART 100 UNITS/ML 3 ML PEN SC SCH ×5 (04:15→20:36)
[2019-04-27] MEDS ORDERED: MICONAZOLE NITRATE POWDER 43 GM EXT PRN (04:57)
[2019-04-27] MEDS ORDERED: PHENAZOPYRIDINE HCL 200 MG TAB PO PRN (06:03)
[2019-04-27] MEDS: LEVOTHYROXINE SODIUM 50 MCG TABLET PO SCH (06:06)
[2019-04-27 07:44] LABS: Basophils # (auto) 0.07 K/uL (0-0.2); Basophils % (auto) 0.4 %; Eosinophils # (auto) 0.25 K/uL (0-0.5); Eosinophils % (auto) 1.6 %; Hematocrit (blood only) 35.9 % (37-47); Hemoglobin 11.9 g/dL (12.0-16.0); Immature Granulocytes # (auto) 0.11 K/uL (0.00-0.02); Immature Granulocytes % (auto) 0.7 %; Lymphocytes # (auto) 1.42 K/uL (1.2-3.4); Lymphocytes % (auto) 8.8 %; Mean Corpuscular Hemoglobin 28.1 pg (25-34); Mean Corpuscular Hgb Conc 33.1 g/dL (32-36); Mean Corpuscular Volume 84.7 fL (80-100); Mean Platelet Volume 11.2 fL (7.4-10.4); Monocytes # (auto) 1.74 K/uL (0.11-0.59); Monocytes % (auto) 10.8 %; Neutrophils % (auto) 77.7 %; Platelet Count 228 K/uL (130-400); RDW Coefficient of Variation 14.7 % (11.5-14.5); RDW Standard Deviation 45.3 fL (36.4-46.3); Red Blood Count 4.24 M/uL (4.2-5.4); White Blood Count 16.09 K/uL (4.8-10.8)
[2019-04-27] MEDS ORDERED: INSULIN ASPART 100 UNITS/ML 3 ML PEN SQ SCH (08:00)
[2019-04-27] MEDS: ATORVASTATIN 20 MG TAB PO SCH (08:12)
[2019-04-27 08:15] LABS: BUN Creatinine Ratio 20.8 (10-20); Calcium 9.3 mg/dl (8.5-10.1); Creatinine Clr Calc Pharmacy 25.1 ml/min; Est GFR (African American) 37.4; Est GFR (Non-African American) 32.2; Magnesium 2.4 mg/dl (1.8-2.4); Potassium 4.4 mmol/L (3.5-5.1)
[2019-04-27] MEDS ORDERED: dilTIAZem ER 120 MG CAPCR PO SCH (09:00)
--- NOTE | 2019-04-27 12:44 | Hospitalist Progress Note ---
Date of Service April 27, 2019 Assessment & Plan (1) Pneumonia: CT chest on 04/25 showed ill-defined upper lobe nodular densities, statistically infectious/inflammatory. She reports her grandson was sick about 2 weeks ago who is a [employer] student, but she does not think he has traveled re [facility]. Procalcitonin was 0.4 on admission. - Continue ceftriaxone/doxycycline - RSVP test - DuoNebs PRN (2) Acute UTI: UA indicated infection. Urine cx from 04/25 shows Gram(-) bacilli. - Continue ceftriaxone (3) Acute confusion: Metabolic encephalopathy in setting of infection. - Appears to be resolved at this time. (4) Sepsis: qSOFA was 2/3 on admission. Lactate was 2.1, but normalized after IV fluids. - Resolved (5) Hypertension: Blood pressure stable today at 130/70. - Hold home furosemide 20 mg daily - Hold home diltiazem 120 mg daily for bradycardia (6) Hyperlipidemia: Patient on atorvastatin 20 mg daily. - Continue as per outpatient. (7) Diabetes mellitus, type II: A1cs have all been stable at ~6.9%. Last one in 08/2018. - Long-acting/sliding scale - Glycemic pharmacist consulted - Continue pregabalin (8) Chronic kidney disease: Baseline Cr. ~1.5, eGFR 30 for several years. - Presently at baseline - Monitor (9) DVT prophylaxis: Heparin 5000 units Q12h Admission and Anticipated Discharge Date Admission Date: April 26, 2019 Subjective More clear today, but reports not feeling any better. Still short of breath. H aving some dry cough. Reports no fevers/chills, chest pain, abdominal pain, nausea, or vomiting. Physical Exam Constitutional: WD/WN, vitals as above Eyes: EOM intact bilaterally; no conjunctival abnormality ENMT: external ear and nose normal, oropharynx normal Neck: trachea midline, no thyromegaly normal visual inspection Respiratory: normal respiratory effort, lungs clear to auscultation no respiratory distress Cardiovascular: RRR, no murmur, no edema Gastrointestinal (Abdomen): Inspection/Auscultation: abdomen normal to inspection; abdomen not distended Musculoskeletal: no cyanosis or clubbing, extremities motor strength 5/5 Skin: no rashes, warm and dry Neurologic: moves all extremities and awake Psychiatric: Orientation: alert, oriented to person and cooperative Results & Data ([place]) Vital Signs (Past 12 Hours) Vital Signs Temp Pulse Resp BP Pulse Ox 04/27/19 11:45 37.4 C 62 19 129/73 91 04/27/19 03:16 36.7 C 53 L 20 127/60 95 PG Care Time/CCT Total # of Minutes Spent Total Time Spent with Patient: Total time spent is greater than 50% in coordination of care (as documented) at patient's floor/unit and/or counseling patient: Coding Level of Care Code 36531 Subseq Hosp Care Lvl 3 Diagnoses Pneumonia J18.9 Laterality: bilateral Lung location: upper lobe of lung Pneumonia type: due to unspecified organism Acute UTI N39.0 Acute confusion R41.0 Sepsis A41.9 Hypertension I10 Hyperlipidemia E78.5 Diabetes mellitus, type II E11.9 Chronic kidney disease N18.9 DVT prophylaxis Z29.9 (1) Pneumonia Laterality: bilateral Lung location: upper lobe of lung Pneumonia type: due to unspecified organism Qualified Code(s): J18.9 - Pneumonia, unspecified organism
--- NOTE | 2019-04-27 12:45 | Pharmacy Report ---
Glycemic Control Consultation - Date of Service April 27, 2019 - Scope Scope: Glycemic Pharmacist consulted for glycemic control and to write orders per [facility] inpatient glycemic control protocol. - Objective Weight: 69.7 kg Accuchecks BSG (last 24hrs): 04/26/19 04/26/19 04/27/19 17:05 23:56 03:54 Glucose 117 H POC Glucose 103 H 137 H 04/27/19 04/27/19 04/27/19 07:17 07:32 10:57 Glucose 96 POC Glucose 113 H 106 H Laboratory Data (last 24hrs): 04/26/19 04/27/19 17:05 07:17 Potassium 4.3 4.4 Carbon Dioxide 28 29 Anion Gap 6.0 5.0 Creatinine 1.79 H 1.53 H Est Cr Clr Drug Dosing 25.3 25.1 - Recent Pertinent Medications Outpatient Anti-diabetic Regimen: * Lantus 14 units qPM plus Novolog * A1c = 6.9 % 08/13/18 The patient is currently receiving: * Basal insulin: Lantus 10 units every 24 hours * Correctional Insulin: Novolog Correction per scale ACHS Goal Range: Low 140 mg/dL - High 180 mg/dL Correction Factor: 30 mg/dL/unit * Prandial insulin: Per carb ratio of 1 unit per 10 grams CHO consumed * Oral Agents: Risk Factors for Insulin Resistance: * Infection: Zithromax plus Rocephin * Diet:T2DM - Assessment & Plan Assessment & Plan: ASSESSMENT: * Ms Christie is a 78 y/o F with a PMH of well controlled T2DM admitted with pulmonary issues. Currently on Rocephin and Zithromax --- no steroids. * Patient received Lantus 10 units last night --- BSGs today were 113-106 mg/dL. No Novolog received. * Scale Lantus for this evening with values ranging from 0-10 units. * Novolog weight-based stress of 2. PLAN FOR INPATIENT GLYCEMIC CONTROL: * Basal insulin * Lantus 0-10 units SQ HS * Lantus 0 units if BSG less than 120 mg/dL * Lantus 5 units if BSG 120-180 mg/dL * Lantus 10 units if BSG greater than 180 mg/dL. * Bolus insulin * NovoLog per scale ACHS or Q6hrs while NPO * Goal Range: Low 120 mg/dL - High 160 mg/dL * Correction Factor: 30 mg/dL/unit * Nutritional / Prandial insulin per carb ratio of 1 unit per 10 grams CHO consumed * Please note that the plan above was derived based on current level of insulin resistance and hospital stress. These recommendations are appropriate for inpatient admission only. Plan of care upon discharge will need to be reassessed to avoid potential outpatient hypo/hyperglycemia. Thank you.
[2019-04-27] MEDS ORDERED: SODIUM CHLORIDE 0.65% NA SOLN 45 ML (OCEAN) PRN (16:57)
[2019-04-27] MEDS ORDERED: SODIUM CHLORIDE 0.65% NA SOLN 45 ML (OCEAN) ONE (16:59)
[2019-04-27 17:00] LABS: Adenovirus PCR Not Detected (NotDetected); Bordetella parapertussis PCR Not Detected (NotDetected); Bordetella pertussis PCR Not Detected (NotDetected); Chlamydia pneumoniae PCR Not Detected (NotDetected); Coronavirus 229E PCR Not Detected (NotDetected); Coronavirus HKU1 PCR Not Detected (NotDetected); Coronavirus NL63 PCR Not Detected (NotDetected); Coronavirus OC43PCR Not Detected (NotDetected); Human Metapneumovirus PCR Not Detected (NotDetected); Influenza A PCR Not Detected (NotDetected); Influenza B PCR Not Detected (NotDetected); Mycoplasma pneumoniae PCR Not Detected (NotDetected); Parainfluenza Virus 1 PCR Not Detected (NotDetected); Parainfluenza Virus 2 PCR Not Detected (NotDetected); Parainfluenza Virus 3 PCR Not Detected (NotDetected); Parainfluenza Virus 4 PCR Not Detected (NotDetected); Respiratory Syncytial VirusPCR Not Detected (NotDetected); Rhinovirus/Enterovirus PCR Not Detected (NotDetected)
[2019-04-27] MEDS: ACETAMINOPHEN 325 MG TAB PO PRN (18:35)
[2019-04-27] MEDS ORDERED: INSULIN GLARGINE SOLOSTAR 100 UNITS/ML 3 ML PEN SQ SCH (21:00)
[2019-04-28] MEDS: cefTRIAXone SODIUM 1,000 MG/50 ML BAG IV SCH (01:14)
[2019-04-28] MEDS: LEVOTHYROXINE SODIUM 75 MCG TABLET PO SCH (05:20)
--- NOTE | 2019-04-28 05:34 | Electrocardiogram Report ---
Test Reason : Blood Pressure : / mmHG Vent. Rate : 081 BPM Atrial Rate : 081 BPM P-R Int : 130 ms QRS Dur : 070 ms QT Int : 364 ms P-R-T Axes : 037 000 022 degrees QTc Int : 422 ms Normal sinus rhythm Low voltage QRS Nonspecific T wave abnormality When compared with ECG of 11-FEB-2016 08:52, Questionable change in QRS axis Nonspecific T wave abnormality now evident in Inferior leads Confirmed by Tolu Jacques ([id number]) on 04/28/2019 5:33:40 AM Referred By: REFERRED SELF Confirmed By:Tolu Jacques
[2019-04-28 06:58] LABS: Hematocrit (blood only) 34.6 % (37-47); Hemoglobin 11.5 g/dL (12.0-16.0); Mean Corpuscular Hemoglobin 28.4 pg (25-34); Mean Corpuscular Hgb Conc 33.2 g/dL (32-36); Mean Corpuscular Volume 85.4 fL (80-100); Mean Platelet Volume 11.2 fL (7.4-10.4); Platelet Count 245 K/uL (130-400); RDW Standard Deviation 46.8 fL (36.4-46.3); Red Blood Count 4.05 M/uL (4.2-5.4); White Blood Count 14.38 K/uL (4.8-10.8)
[2019-04-28 07:26] LABS: BUN Creatinine Ratio 21.3 (10-20); Calcium 9.2 mg/dl (8.5-10.1); Creatinine Clr Calc Pharmacy 27.3 ml/min; Est GFR (African American) 41.3; Est GFR (Non-African American) 35.6; Magnesium 2.5 mg/dl (1.8-2.4); Potassium 3.9 mmol/L (3.5-5.1)
[2019-04-28] MEDS: PREGABALIN 100 MG CAP PO SCH ×2 (07:42→20:45)
[2019-04-28] MEDS: ATORVASTATIN 20 MG TAB PO SCH (07:42)
[2019-04-28] MEDS: INSULIN ASPART 100 UNITS/ML 3 ML PEN SC SCH ×4 (08:39→20:42)
[2019-04-28] MEDS: HEPARIN SOD 5,000 UNIT/0.5 ML VIAL SQ SCH ×2 (08:45→20:42)
--- NOTE | 2019-04-28 10:20 | Pharmacy Report ---
Glycemic Control Progress Note - Date of Service April 28, 2019 - Scope Glycemic Pharmacist consulted for glycemic control to write orders per [facility] inpatient glycemic control protocol. - Objective Accuchecks BSG(last 24 hours):: 04/27/19 04/27/19 04/27/19 10:57 16:47 20:20 Glucose POC Glucose 106 H 104 H 139 H 04/28/19 04/28/19 06:32 07:35 Glucose 99 POC Glucose 91 - Recent Pertinent Medications The patient is currently receiving: * Basal insulin: Lantus 5 units every 24 hours * Correctional Insulin: Novolog Correction per scale ACHS Goal Range: Low 120 mg/dL - High 160 mg/dL Correction Factor: 30 mg/dL/unit * Prandial insulin: Per carb ratio of 1 unit per 10 grams CHO consumed - Outpatient Anti-Diabetic Meds Basaglar 14 units qPM Novolog - Assessment & Plan ASSESSMENT: * See progress note from 04/27/2019 for more background info, in short: * Pt receiving SQ basal bolus insulin regimen for hyperglycemia secondary to baseline DM (outpatient regimen on hold) and infection (on Rocephin and azithromycin) * Patient is currently receiving an average of 5 units of insulin per day * 5 units of basal insulin * 0 units of prandial/correctional insulin * BSGs ranging 104 - 139 mg/dl over the past 24hrs * Changes needed to insulin regimen: * AM Fasting BSG = 99 mg/dl. This is below goal range for patient based on inpatient targets and co-morbidities. Discontinue basal insulin. * Post-prandial BSGs are unable to be evaluated as patient did not receive any bolus insulin yesterday. * Total daily dose = <10 units. Evaluate how patient does without basal insulin tomorrow. PLAN FOR INPATIENT GLYCEMIC CONTROL: * DISCONTINUING Lantus * Continuing correction factor of 30 mg/dl/unit * Continuing carb ratio of 1 unit per 10 grams CHO consumed * Continuing goal range of Low 120 mg/dL - High 160 mg/dL RECOMMENDATIONS FOR DISCHARGE: * HbA1 Not drawn yet * Continue current regimen as long as patient does not have hypoglycemia at home. Thank you.
--- NOTE | 2019-04-28 14:26 | Hospitalist Progress Note ---
Date of Service April 28, 2019 Assessment & Plan (1) Pneumonia: CT chest on 04/25 showed ill-defined upper lobe nodular densities, statistically infectious/inflammatory. She reports her grandson was sick about 2 weeks ago who is a [employer] student, but she does not think he has traveled re [facility]. Procalcitonin was 0.4 on admission. - Continue cefdinir/doxycycline - BioFire was negative for any viral causes -> Overall, low risk for Covid-19, so will not pursue further testing. - DuoNebs PRN (2) Acute UTI: UA indicated infection. Urine cx from 04/25 shows E. coli sensitive to ceftriaxone. - Continue cefdinir (3) Acute confusion: Metabolic encephalopathy in setting of infection. - Resolved at this time. (4) Sepsis: qSOFA was 2/3 on admission. Lactate was 2.1, but normalized after IV fluids. - Resolved (5) Hypertension: Blood pressure stable today at 110/60. - Restart home furosemide 20 mg daily to avoid fluid overload worsening her breathing. - Hold home diltiazem 120 mg daily for bradycardia (6) Hyperlipidemia: Patient on atorvastatin 20 mg daily. - Continue as per outpatient. (7) Diabetes mellitus, type II: A1cs have all been stable at ~6.9%. Last one in 08/2018. - Long-acting/sliding scale - Glycemic pharmacist consulted - Continue pregabalin (8) Chronic kidney disease: Baseline Cr. ~1.5, eGFR 30 for several years. - Presently at baseline - Monitor (9) DVT prophylaxis: Heparin 5000 units Q12h Admission and Anticipated Discharge Date Admission Date: April 26, 2019 Subjective Improved breathing today. Somewhat still short of breath, but improved cough. Reports no fevers/chills, chest pain, abdominal pain, nausea, or vomiting. Physical Exam Constitutional: WD/WN, vitals as above Eyes: EOM intact bilaterally; no conjunctival abnormality ENMT: external ear and nose normal, oropharynx normal Neck: trachea midline, no thyromegaly normal visual inspection Respiratory: normal respiratory effort, lungs clear to auscultation no respiratory distress Cardiovascular: RRR, no murmur, no edema Gastrointestinal (Abdomen): Inspection/Auscultation: abdomen normal to inspection; abdomen not distended Musculoskeletal: no cyanosis or clubbing, extremities motor strength 5/5 Skin: no rashes, warm and dry Neurologic: moves all extremities and awake Psychiatric: Orientation: alert, oriented to person and cooperative Results & Data ([facility]) Vital Signs (Past 12 Hours) Vital Signs Temp Pulse Resp BP Pulse Ox 04/28/19 07:14 36.8 C 65 18 111/61 90 04/28/19 05:13 36.4 C L 50 L 20 118/67 97 PG Care Time/CCT Total # of Minutes Spent Total Time Spent with Patient: Total time spent is greater than 50% in coordination of care (as documented) at patient's floor/unit and/or counseling patient: Coding Level of Care Code 16582 Subseq Hosp Care Lvl 2 Diagnoses Pneumonia J18.9 Laterality: bilateral Lung location: upper lobe of lung Pneumonia type: due to unspecified organism Acute UTI N39.0 Acute confusion R41.0 Sepsis A41.9 Hypertension I10 Hyperlipidemia E78.5 Diabetes mellitus, type II E11.9 Chronic kidney disease N18.9 DVT prophylaxis Z29.9 (1) Pneumonia Laterality: bilateral Lung location: upper lobe of lung Pneumonia type: due to unspecified organism Qualified Code(s): J18.9 - Pneumonia, unspecified organism
[2019-04-28] MEDS: AZITHROMYCIN 250 MG TAB PO SCH (20:42)
[2019-04-28] MEDS: CEFDINIR 300 MG CAP PO SCH (20:42)
--- NOTE | 2019-04-28 22:29 | Electrocardiogram Report ---
Test Reason : Blood Pressure : / mmHG Vent. Rate : 043 BPM Atrial Rate : 043 BPM P-R Int : 154 ms QRS Dur : 074 ms QT Int : 518 ms P-R-T Axes : 070 014 072 degrees QTc Int : 437 ms Marked sinus bradycardia Abnormal ECG When compared with ECG of 26-APR-2019 17:45, Vent. rate has decreased BY 38 BPM Nonspecific T wave abnormality now evident in Lateral leads Confirmed by Tolu Jacques ([id number]) on 04/28/2019 10:29:44 PM Referred By: REFERRED SELF Confirmed By:Tolu Jacques
[2019-04-29] MEDS: LEVOTHYROXINE SODIUM 50 MCG TABLET PO SCH (05:59)
[2019-04-29 06:49] LABS: Hematocrit (blood only) 33.5 % (37-47); Hemoglobin 10.9 g/dL (12.0-16.0); Mean Corpuscular Hemoglobin 28.2 pg (25-34); Mean Corpuscular Hgb Conc 32.5 g/dL (32-36); Mean Corpuscular Volume 86.6 fL (80-100); Mean Platelet Volume 11.1 fL (7.4-10.4); Platelet Count 278 K/uL (130-400); RDW Coefficient of Variation 14.9 % (11.5-14.5); RDW Standard Deviation 47.2 fL (36.4-46.3); Red Blood Count 3.87 M/uL (4.2-5.4); White Blood Count 11.88 K/uL (4.8-10.8)
[2019-04-29] MEDS: FUROSEMIDE 20 MG TAB PO SCH (08:15)
[2019-04-29] MEDS: HEPARIN SOD 5,000 UNIT/0.5 ML VIAL SQ SCH ×2 (08:15→20:23)
[2019-04-29] MEDS: ATORVASTATIN 20 MG TAB PO SCH (08:15)
[2019-04-29] MEDS: PREGABALIN 100 MG CAP PO SCH ×2 (08:15→20:25)
[2019-04-29] MEDS: INSULIN ASPART 100 UNITS/ML 3 ML PEN SC SCH ×4 (08:15→20:23)
[2019-04-29] MEDS ORDERED: DiphenhydrAMINE 2%/ZINC 0.1% CREAM 28GM TUBE EXT PRN (09:02)
[2019-04-29] MEDS ORDERED: HYDROCORTISONE 1% CRM 30 GM TUBE EXT SCH (09:15)
[2019-04-29] MEDS: HYDROCORTISONE 2.5% CR 30 GM TUBE EXT SCH ×2 (09:48→20:22)
[2019-04-29] MEDS: ACETAMINOPHEN 325 MG TAB PO PRN (14:23)
--- NOTE | 2019-04-29 15:29 | Hospitalist Progress Note ---
Date of Service April 29, 2019 Assessment & Plan (1) Pneumonia: CT chest on 04/25 showed ill-defined upper lobe nodular densities, statistically infectious/inflammatory. She reports her grandson was sick about 2 weeks ago who is a [employer] student, but she does not think he has traveled re [facility]. Procalcitonin was 0.4 on admission. - Continue cefdinir/doxycycline - BioFire was negative for any viral causes -> Overall, low risk for Covid-19, so will not pursue further testing. - DuoNebs PRN - Improving today. (2) Acute UTI: UA indicated infection. Urine cx from 04/25 shows E. coli sensitive to ceftriaxone. - Continue cefdinir (3) Acute confusion: Metabolic encephalopathy in setting of infection. - Resolved at this time. (4) Sepsis: qSOFA was 2/3 on admission. Lactate was 2.1, but normalized after IV fluids. - Resolved (5) Hypertension: Blood pressure stable today at 120/65. - Continued home furosemide 20 mg daily to avoid fluid overload worsening her breathing. - Hold home diltiazem 120 mg daily for bradycardia (6) Hyperlipidemia: Patient on atorvastatin 20 mg daily. - Continue as per outpatient. (7) Diabetes mellitus, type II: A1cs have all been stable at ~6.9%. Last one in 08/2018. - Long-acting/sliding scale - Glycemic pharmacist consulted - Continue pregabalin (8) Chronic kidney disease: Baseline Cr. ~1.5, eGFR 30 for several years. - Presently at baseline - Monitor (9) DVT prophylaxis: Heparin 5000 units Q12h Admission and Anticipated Discharge Date Admission Date: April 26, 2019 Subjective Doing well today. No major complaints. Overall, pleased with breathing. Reports no fevers/chills, chest pain, shortness of breath, abdominal pain, nausea, or vomiting. Physical Exam Constitutional: WD/WN, vitals as above Eyes: EOM intact bilaterally; no conjunctival abnormality ENMT: external ear and nose normal, oropharynx normal Neck: trachea midline, no thyromegaly normal visual inspection Respiratory: normal respiratory effort, lungs clear to auscultation no respiratory distress Cardiovascular: RRR, no murmur, no edema Gastrointestinal (Abdomen): Inspection/Auscultation: abdomen normal to inspection; abdomen not distended Musculoskeletal: no cyanosis or clubbing, extremities motor strength 5/5 Skin: no rashes, warm and dry Neurologic: moves all extremities and awake Psychiatric: Orientation: alert, oriented to person and cooperative Results & Data ([facility]) Vital Signs (Past 12 Hours) Vital Signs Temp Pulse Resp BP BP Pulse Ox 04/29/19 12:25 36.2 C L 69 20 122/64 90 04/29/19 09:58 90 04/29/19 07:19 36.3 C L 49 L 22 105/61 91 PG Care Time/CCT Total # of Minutes Spent Total Time Spent with Patient: Total time spent is greater than 50% in coordination of care (as documented) at patient's floor/unit and/or counseling patient: Coding Level of Care Code 37508 Subseq Hosp Care Lvl 2 Diagnoses Pneumonia J18.9 Laterality: bilateral Lung location: upper lobe of lung Pneumonia type: due to unspecified organism Acute UTI N39.0 Acute confusion R41.0 Sepsis A41.9 Hypertension I10 Hyperlipidemia E78.5 Diabetes mellitus, type II E11.9 Chronic kidney disease N18.9 DVT prophylaxis Z29.9 (1) Pneumonia Laterality: bilateral Lung location: upper lobe of lung Pneumonia type: due to unspecified organism Qualified Code(s): J18.9 - Pneumonia, unspecified organism
[2019-04-29] MEDS: AZITHROMYCIN 250 MG TAB PO SCH (20:23)
[2019-04-29] MEDS: CEFDINIR 300 MG CAP PO SCH (20:23)
[2019-04-29] MEDS ORDERED: INSULIN GLARGINE SOLOSTAR 100 UNITS/ML 3 ML PEN SC SCH (21:00)
[2019-04-29 21:52] VITALS: TEMP 97.7
[2019-04-30 04:05] VITALS: PULSE 46
[2019-04-30] MEDS: ACETAMINOPHEN 325 MG TAB PO PRN (05:23)
[2019-04-30 05:50] LABS: Hematocrit (blood only) 33.1 % (37-47); Hemoglobin 10.7 g/dL (12.0-16.0); Mean Corpuscular Hemoglobin 27.9 pg (25-34); Mean Corpuscular Hgb Conc 32.3 g/dL (32-36); Mean Corpuscular Volume 86.2 fL (80-100); Mean Platelet Volume 11.1 fL (7.4-10.4); Platelet Count 301 K/uL (130-400); RDW Coefficient of Variation 14.9 % (11.5-14.5); RDW Standard Deviation 47.3 fL (36.4-46.3); Red Blood Count 3.84 M/uL (4.2-5.4); White Blood Count 9.65 K/uL (4.8-10.8)
[2019-04-30] MEDS: LEVOTHYROXINE SODIUM 75 MCG TABLET PO SCH (06:19)
[2019-04-30 06:26] LABS: BUN Creatinine Ratio 23.5 (10-20); Creatinine Clr Calc Pharmacy 26.3 ml/min; Est GFR (African American) 39.2; Est GFR (Non-African American) 33.8; Potassium 4.2 mmol/L (3.5-5.1)
[2019-04-30] MEDS: PREGABALIN 100 MG CAP PO SCH (07:07)
[2019-04-30] MEDS: HYDROCORTISONE 2.5% CR 30 GM TUBE EXT SCH (07:07)
[2019-04-30] MEDS: ATORVASTATIN 20 MG TAB PO SCH (07:07)
[2019-04-30] MEDS: FUROSEMIDE 20 MG TAB PO SCH (07:07)
[2019-04-30 07:33] VITALS: BP 117/61; O2SAT 94
[2019-04-30] MEDS: HEPARIN SOD 5,000 UNIT/0.5 ML VIAL SQ SCH (08:15)
[2019-04-30] MEDS: INSULIN ASPART 100 UNITS/ML 3 ML PEN SC SCH (08:16)
--- NOTE | 2019-04-30 14:42 | Discharge Summary ---
Date of Service April 30, 2019 Admission HPI Per Admitting Provider This is a 70-year-old female with past medical history of hyperlipidemia, hypertension, chronic kidney disease, and type 2 diabetes mellitus that presents today with cough and altered mental status. Patient is a somewhat limited historian but daughter is at bedside who is able to give detailed history. Daughter tells me that the patient is occasionally forgetful at baseline but typically does well. She lives alone. She was complaining earlier in the week of some nasal congestion but did not seem to be that sick. She took her grandchildren to the [employer] earlier in the week without any issues. Patient developed a dry hacking cough about 48 hours ago. She did not mention any fevers or significant shortness of breath. Was found later that 1 of the grandchildren had an uncomplicated bronchitis and family suspects that this is the source of the patient's URI. Yesterday the patient called her primary care physician in regards her congestion and was told it was likely common cold and was advised to continue supportive measures. Earlier this morning, the daughter called the patient at home multiple times with a negative answer. Her stopped by around 1:30 in the afternoon and found that the patient seemed to be a little more confused and had a significant cough. He also noted a temp of around 100 F. At that point the patient was brought to the emergency room for further evaluation. At time my evaluation, I note that the patient is very hard of hearing. She is oriented to person and place. She does not appear to be in any significant respiratory distress although she is weak and does exhibit a dry cough. Vitals are otherwise stable and she is good on 2 L nasal cannula. Principal Diagnosis Pneumonia Discharge Exam Constitutional WD/WN, vitals as above Eyes EOM intact bilaterally; no conjunctival abnormality ENMT external ear and nose normal, oropharynx normal Neck trachea midline, no thyromegaly normal visual inspection Respiratory normal respiratory effort, lungs clear to auscultation no respiratory distress Cardiovascular RRR, no murmur, no edema Gastrointestinal (Abdomen) Inspection/Auscultation: abdomen normal to inspection; abdomen not distended Musculoskeletal no cyanosis or clubbing, extremities motor strength 5/5 Skin no rashes, warm and dry Neurologic moves all extremities and awake Psychiatric Orientation: alert, oriented to person and cooperative Discharge Data Allergies Allergy/AdvReac Type Severity Reaction Status Date / Time timolol [From Timoptic] Allergy Unknown Verified 04/26/19 18:34 Penicillins AdvReac Unknown PT CLAIMS Verified 04/26/19 18:34 PCN DOESN'T WORK Consultations 04/26/19 18:18 ED Decision to Admit Stat Ordered Studies 04/26/19 18:17 CT chest wo con Stat Hospital Course (1) Pneumonia: CT chest on 04/25 showed ill-defined upper lobe nodular densities, statistically infectious/inflammatory. She reports her grandson was sick about 2 weeks ago who is a [employer] student, but she does not think he has traveled recently. Procalcitonin was 0.4 on admission. - BioFire was negative for any viral causes -> Overall, low risk for Covid-19, so will not pursue further testing. - DuoNebs PRN - Mostly back at baseline by discharge. Finish antibiotic with last dose on 05/01/2019. (2) Acute UTI: UA indicated infection. Urine cx from 04/25 shows E. coli sensitive to ceftriaxone. - Continue cefdinir as above which will cover it. (3) Eczema: Patient had a widespread, itchy rash on her back and arms. Reports this has gone on for years and waxes and wanes. Worse in the winter. Looks like eczema and the history sounds like it to. - Started hydrocortisone 2.5% cream BID applications -> Continue until rash has resolved. - Benadryl cream PRN (4) Hypertension: Blood pressures were never high for us here, usually in the 120/50 range. - Continued home furosemide 20 mg daily to avoid fluid overload worsening her breathing. - Held home diltiazem 120 mg daily for bradycardia -> Stopped on discharge. (5) Diabetes mellitus, type II: A1cs have all been stable at ~6.9%. Last one in 08/2018. - Sliding scale insulin - Glycemic pharmacist consulted -> Stopped long-acting insulin as she had no need for it. Once she gets home, may need to restart if her sugars go up with change in diet. - Continue pregabalin (6) Acute confusion: Metabolic encephalopathy in setting of infection. - Resolved at this time. (7) Sepsis: qSOFA was 2/3 on admission. Lactate was 2.1, but normalized after IV fluids. - Resolved (8) Hyperlipidemia: Patient on atorvastatin 20 mg daily. - Continue as per outpatient. (9) Chronic kidney disease: Baseline Cr. ~1.5, eGFR 30 for several years. - Presently at baseline - Monitor (10) DVT prophylaxis: Heparin 5000 units Q12h Total Time Total Time Spent Total Time Spent (In Minutes): 35 Discharge Plan Discharge Items Patient Disposition: Transfer Inpatient Rehab Fac Reason For Visit: SEPSIS Discharge Diagnosis: Pneumonia Condition on Discharge: Fair Activity: Resume your previous activity Non-emergency contact: Primary Care Provider Call non-emergency contact if: your symptoms worsen, your pain is worsening and your temperature is above 101 Follow-up/Referrals: Celso Wiseman MD [Primary Care Provider] - Diet: Heart Healthy Addtl Attending Provider Instructions: 1) You were admitted with signs of a mild lung infection (pneumonia) and a possible urinary tract infection (UTI). We are pleased with how you did on antibiotics, and we will treat you for an another two days. Please take the cefdinir 300 mg by mouth this evening and tomorrow evening to finish your antibiotic course. (Last dose on 05/01/2019). 2) You have a rash on your back and arms. This sounds like a long-standing eczema that comes and goes with winter. We started hydrocortisone 2.5% cream two times per day which has already started to help. Keep doing this until the rash has gone away. Benadryl cream can help with the itching as the skin heals. 3) Your blood sugars were quite low in the hospital. We lowered and eventually stopped your long-acting insulin and just used a sliding scale. Please monitor your sugars. If your diet is not quite as strict at home, you may need to restart the long-acting insulin. 4) Your heart rate here was consistently on the low end (50s to 60s). Your blood pressure was well-controlled (mostly ~120/60). We stopped your diltiazem to prevent it from going slower. Please hold it for now and monitor your heart rate and blood pressure. Pending Studies at Discharge: No Stand-Alone Forms: My Meograph, Smoking Cessation Skilled Items Patient informed of condition?: No DNR: No Discharge Level of Care: Acute rehab Communicable Disease: No Discharge Prognosis: Improving Lines: None Urinary Catheter: No Medications and DC Order Prescriptions: New Anti-Itch(diphenhyd) with Zinc 2-0.1 % Cream 1 applic EXT TID PRN (Reason: itching) Qty: 1 RF: 0 hydrocortisone 2.5 % Cream 1 applic EXT BID Qty: 1 RF: 0 cefdinir 300 mg Capsule 300 mg PO HS Qty: 1 RF: 0 Continued furosemide 20 mg tablet 20 mg PO DAILY Qty: 90 RF: 3 (DME) lancets [OneTouch Delica Lancets] 33 gauge misc See Dose Instructions .ROUTE .MEDSUPPLY Qty: 360 RF: 3 pen needle, diabetic [BD Ultra-Fine Mini Pen Needle] 31 gauge x 3/16" needle See Rx Instructions .ROUTE .COMPLEX Qty: 540 RF: 0 atorvastatin 20 mg tablet 20 mg PO DAILY Qty: 90 RF: 0 pregabalin 100 mg capsule 100 mg PO BID RF: 0 (DME) OneTouch Ultra Blue Test Strip strip See Dose Instructions .ROUTE .MEDSUPPLY Qty: 10 RF: 0 ergocalciferol (vitamin D2) 50,000 unit capsule 50,000 units PO MONTHLY Qty: 12 RF: 0 levothyroxine 75 mcg tablet 75 mcg PO Q OTHER DAY RF: 0 levothyroxine 50 mcg tablet 50 mcg PO Q OTHER DAY RF: 0 insulin aspart U-100 [Novolog Flexpen U-100 Insulin] 100 unit/mL (3 mL) insulin pen 0 unit SQ TIDM RF: 0 Discontinued diltiazem HCl 120 mg capsule,extended release 24 hr 120 mg PO DAILY Qty: 90 RF: 3 Basaglar KwikPen U-100 Insulin 100 unit/mL (3 mL) insulin pen 14 units SQ QPM RF: 0 Discharge Orders: Discharge Order (Routine); Ordered 04/30/19 Ordered By: Rodger Finley Admission Data Admit Date/Time: 04/26/19 18:54 Attending Provider: Rodger Finley Admit Provider: Tone Jeffery Primary Care Provider: Celso Wiseman Other Providers: Rodger Finley ; [facility] ; [facility] Other Interventions: Discharge Summary Assessment (RN) Last Done: 04/30/19 10:17 DC Date/Time DO NOT enter until pt leaves facility: 04/30/19 11:10 Coding Level of Care Code D/C Day Management >30 mins Diagnoses Pneumonia J18.9 Laterality: bilateral Lung location: upper lobe of lung Pneumonia type: due to unspecified organism Acute UTI N39.0 Eczema L30.9 Hypertension I10 Diabetes mellitus, type II E11.9 Acute confusion R41.0 Sepsis A41.9 Hyperlipidemia E78.5 Chronic kidney disease N18.9 DVT prophylaxis Z29.9
[2019-05-14] MEDS ORDERED: ERGOCALCIFEROL 50,000 UNITS CAP PO SCH (09:00)
== END 2019-04-30 11:10 | DRG 871 ==
LOC: ED 16:22 → SUATTDRO 18:54 → 2N 18:54

== ENCOUNTER 2022-09-20 05:29 | Observation (INO) ==
--- NOTE | 2022-09-12 13:02 | Anesthesiology Consultation ---
Date of Service September 12, 2022 Assessment & Plan (1) Encounter for pre-operative examination: - discharge summary 10/12/2004 PSH: "...total abdominal hysterectomy. bilateral salpingo-oophorectomy. ventral hernia repair...tolerated the procedure well and was unable to be extubated in the PACU and was transferred to SICU...remained on vent requiring pressor support for IV of 50 and continued to be ventilated until postop day #5, when she self-extubated...treated for ventilator-associated pneumonia...diet and activity were then advanced...postop course was then uneventful..." - per anesthesia records in external application, 01/13/15: "...extended intubation, ventilator associated pneumonia..." L5-S1 laminectomy Grade I view, glidescope 3, ETT 7.5. Patient also underwent L3-S1 decompression fusion possible interbody. - anesthesia record 06/02/04 ventral hernia repair, [place]: "need increased PEEP in OR" ETT 7.5. "admit to PACU on bed with anes airway patent with ETT. bagged by anes. VSS. lungs clr IV patent...resp at bedside. Pt connected to vent with diff...pt awake attempting to grab ETT. Pt sedated with Versed and fentanyl per anes...transported on monitor, O2 bagged by RN with resp..." - check BSG am DOS. - anesthesia complication: patient reports intubation x 1 week after hernia repair at [facility], patient cannot recall when surgery occurred. - Per bathhouse attendant on 09/12/2022: No known infectious disease contacts, current infectious disease symptoms in past 10 days or COVID positive test result in the past 90 days. Chart Review Chart Review: Acceptable Risk for Surgery and Patient NOT seen in Pre Admission Testing History Surgery Operation Date: 09/20/22 07:00 Proposed Procedures p Open Lower Abdominal Incisional Hernia Repair Possible Mesh - Guevara Powell MD, FACS Height/Weight Height: 4 ft 9 in Weight: 72.575 kg Allergies Allergy/AdvReac Type Severity Reaction Status Date / Time timolol [From Timoptic] Allergy Intermediate SWELLING Verified 09/12/22 11:30 OF THE EYES Penicillins AdvReac Unknown PT CLAIMS Verified 09/12/22 11:30 PCN DOESN'T WORK Medications Home Medications Medication Instructions Recorded Confirmed Last Taken livongo 10/19/20 07/19/22 Unknown mycophenolate mofetil 500 mg tablet 500 mg PO BID 02/06/21 09/12/22 08/22/22 08:00 docusate sodium 50 mg capsule 50 mg PO BID 04/18/21 09/12/22 08/22/22 08:00 pen needle, diabetic 31 gauge x #100 ea 07/31/21 07/19/22 Unknown 3/16" (BD Ultra-Fine Mini Pen Needle) minocycline 50 mg capsule 50 mg PO BID 09/08/21 09/12/22 08/22/22 08:00 Lactobacillus acidophilus 2 2,000 mmu cells PO DAILY #30 tabs 02/07/22 09/12/22 08/22/22 billion cell tablet atorvastatin 10 mg tablet 10 mg PO QPM #90 tabs 05/02/22 09/12/22 08/21/22 acetaminophen 500 mg tablet 500 mg PO UD PRN Pain 08/22/22 09/12/22 Unknown (Tylenol Extra Strength) insulin glargine 100 unit/mL (3 4 unit subcut HS 08/22/22 09/12/22 08/21/22 mL) subcutaneous pen (Basaglar KwikPen U-100 Insulin) lidocaine 5 % topical patch 1 patch topical DAILY PRN pain #15 08/22/22 09/12/22 Unknown (Lidoderm) ea ergocalciferol (vitamin D2) 1,250 50,000 unit PO Q30D 09/12/22 09/12/22 Unknown mcg (50,000 unit) capsule escitalopram oxalate 5 mg tablet 5 mg PO QAM 09/12/22 09/12/22 Unknown (Lexapro) levothyroxine 50 mcg capsule 50 mcg PO QAM 09/12/22 09/12/22 Unknown (Tirosint) methenamine hippurate 1 gram tablet 1 g PO QAM 09/12/22 09/12/22 Unknown Past Medical History Medical History Anxiety Chronic kidney disease stage 4 Constipation Medically managed with colace. High fiber diet. - unable to tolerate MiraLax Diabetes mellitus, type 2 medication is currently on hold per Dysphagia Eczema Glaucoma pt denies Hearing loss History of anesthesia reaction following hernia surgery at [facility] (pt not sure when done), she had to remain intubated for "awhile" after sx.>intubated for 1 week following History of cancer dx 1979, breast cancer; sx and chemo Hypertension Hypothyroidism Osteopenia Recurrent UTI Sleep apnea "said I have it and I don't have a machine" Urinary frequency Urinary urgency Vaginal atrophy Vitamin D deficiency Vulvar lesion Past Family History Family History Brother Diabetes Mother Cancer Throat cancer Father Cancer Pulmonary embolism Prostate cancer Unknown Diabetes Hypertension Breast cancer Denies family history of Ovarian cancer Myocardial infarction Colorectal cancer Past Surgical History Surgical History H/O breast surgery rt. H/O: hysterectomy History of bladder surgery History of cataract surgery bilat. History of detached retina repair History of ear surgery Hx of colonoscopy Hx of gynecological procedure lesion removed from vulva Hx of hernia repair sx at [facility], unsure when it was done Social History Smoking Status: Never smoker Do You Dip or Chew Tobacco: No Hx Alcohol Use: Yes Alcohol type: hard liquor alcohol intake frequency: holidays/special occasions only Hx Substance Use: No substance use type: does not use Lab Results Anesthesia Preop Results Results Anesthesia Widget: WBC 8.74 K/ul (4.8-10.8) 08/22/22 Hgb 14.0 g/dl (12.0-16.0) 08/22/22 Hct 41.8 % (37.0-47.0) 08/22/22 Plt 204 K/uL (130-400) 08/22/22 Na 136 mmol/L (136-145) 08/22/22 K 4.5 mmol/L (3.5-5.1) 08/22/22 Cl 102 mmol/L (98-107) 08/22/22 CO2 26 mmol/L (21-32) 08/22/22 BUN 22 mg/dl (6-23) 08/22/22 Creat 1.24 mg/dl (0.6-1.2) H 08/22/22 Glucose Level 121 mg/dl (70-99(Fasting)) H 08/22/22 PT 10.8 Seconds (9.0-12.0) 08/22/22 INR 1.0 (0.9-1.1) 08/22/22 Testing Electrocardiogram Date: 08/22/22 Sinus bradycardia, rate 59 bpm Cervical Spine Date: 08/22/22 CT 1. There is no evidence of cervical spine fracture or subluxation. 2. Osteopenia and spondylotic change as above Other Testing CT chest, abdomen and pelvis 08/22/22 1. No acute posttraumatic intrathoracic abnormality is identified. 2. There is no airspace consolidation, pleural effusion, or pneumothorax. 3. Cardiomegaly. 4. There is no evidence of solid organ injury in the abdomen or pelvis. 5. Findings suggest cystitis. Correlate with clinical findings and urinalysis. 6. A large ventral hernia in the pelvis contains nonobstructed small bowel loops and a segment of the anterior bladder. 7. Rectosigmoid fecal retention and mild to moderate constipation. 8. Advanced colonic diverticulosis without CT evidence of acute diverticulitis. 9. Additional findings as above.
[2022-09-20] MEDS ORDERED: LACTATED RINGER'S 1,000 ML IV SCH (06:00)
--- NOTE | 2022-09-20 06:15 | History & Physical Bridge Note ---
Date of Service September 20, 2022 History & Physical Bridge Note I have examined the patient, reviewed the History & Physical and in the interval since the performance of the History & Physical I have noted the following changes of clinical significance: no changes noted pt marked all question answered to call daughter post op
[2022-09-20] MEDS ORDERED: fentaNYL citrate PF 100 MCG/2 ML VIAL ONE (06:41)
[2022-09-20] MEDS ORDERED: ONDANSETRON INJ 2 MG/ML 2 ML VIAL ONE (06:47)
[2022-09-20] MEDS ORDERED: PROPOFOL IV EMULSION 10 MG/ML 20 ML VIAL IV ONE (06:47)
[2022-09-20] MEDS ORDERED: LIDOCAINE 2% 2 ML VIAL/AMP(20MG/ML) INFIL ONE (06:47)
[2022-09-20] MEDS ORDERED: BUPIVACAINE 0.5 % 5 MG/1 ML MPF 30ML VIAL ONE (06:50)
[2022-09-20] MEDS ORDERED: BUPIVACAINE/EPINEPHRINE 0.5% MPF 1:200,000 10 ML VIAL ONE (06:50)
[2022-09-20] MEDS ORDERED: ceFAZolin 330 MG/ML 1 GM VIAL ONE (07:11)
[2022-09-20] MEDS ORDERED: ONDANSETRON INJ 2 MG/ML 2 ML VIAL IV PRN ×2 (07:13→09:40)
[2022-09-20] MEDS ORDERED: ePHEDrine sulfate 50 MG/ML AMP IV PRN (07:13)
[2022-09-20] MEDS ORDERED: HYDROmorphone INJ 1 MG/ML SYRINGE IV PRN (07:13)
[2022-09-20] MEDS ORDERED: FLUMAZENIL 0.1 MG/1 ML 10 ML VIAL IV PRN (07:13)
[2022-09-20] MEDS ORDERED: PROMETHAZINE HCL 12.5 MG in SODIUM CHLORIDE 0.9% 50 ML IV PRN ×2 (07:13→09:40)
[2022-09-20] MEDS ORDERED: ATROPINE SULFATE 0.1 MG/ML 10ML SYR IV PRN (07:13)
[2022-09-20] MEDS ORDERED: fentaNYL citrate PF 100 MCG/2 ML VIAL IV PRN (07:13)
[2022-09-20] MEDS ORDERED: NALOXONE HCL 0.4 MG/1 ML VIAL/CARP IV PRN (07:13)
[2022-09-20] MEDS ORDERED: CISATRACURIUM BESYLATE IV SOLN 2 MG/ML 10 ML VIAL IV ONE (07:16)
[2022-09-20] MEDS ORDERED: GLYCOPYRROLATE 0.2 MG/ML VIAL ONE (09:09)
[2022-09-20] MEDS ORDERED: NEOSTIGMINE METHYLSULFATE 1 MG/ML 10ML VIAL ONE (09:09)
--- NOTE | 2022-09-20 09:29 | Post Operative Brief Note ---
Immediate Post Op Note v1 Date of Surgery September 20, 2022 Pre & Post Diagnosis Operation Date: 09/20/22 07:00 Pre-Op Diagnosis: Incisional Lower Abdominal Hernia Post-Op Diagnosis: Incisional Lower Abdominal Hernia I identified the patient and participated in the time-out.: Yes Procedure Operation Date: 09/20/22 07:00 Actual Procedures p Open Lower Abdominal Incisional Hernia Repair with Mesh and Excision Lysis of Adhesions(Not Applicable) - Guevara Powell MD, FACS Surgeon Guevara Powell MD, FACS Typewriter Operator Automatic pranav forte Estimated Blood Loss 75 Findings Consistent with Post-Op Diagnosis Drains Saucedo Catheter
[2022-09-20] MEDS ORDERED: GLUCAGON FOR INJ 1 MG VIAL SQ PRN (09:40)
[2022-09-20] MEDS ORDERED: PHARMACY GLYCEMIC MGMT CONSULT PRN (09:40)
[2022-09-20] MEDS ORDERED: DEXTROSE 50% 50 ML SYRINGE IV PRN (09:40)
[2022-09-20] MEDS ORDERED: MoRPHine SULFATE 2 MG/ML CARP IV PRN (09:40)
[2022-09-20] MEDS ORDERED: MoRPHine SULFATE 4 MG/ML 1 ML CARP\\VIAL IV PRN (09:40)
[2022-09-20] MEDS ORDERED: oxyCODONE/ACETAMINOPHEN 5mg/325mg TAB PO PRN ×2 (09:40)
[2022-09-20] MEDS ORDERED: GLUCOSE 10 TAB/TUBE PO PRN (09:40)
[2022-09-20] MEDS ORDERED: GLUCOSE 40% GEL 15 GM TUBE PO PRN (09:40)
[2022-09-20] MEDS ORDERED: CARBOHYDRATES FOR HYPOGLYCEMIA PO PRN (09:40)
--- NOTE | 2022-09-20 09:55 | Operative Report ---
PG Post Operative Report Pre & Post Diagnosis Operation Date: 09/20/22 07:00 Pre-Op Diagnosis: Incisional Lower Abdominal Hernia Post-Op Diagnosis: Incisional Lower Abdominal Hernia I identified the patient and participated in the time-out.: Yes Procedure Operation Date: 09/20/22 07:00 Actual Procedures p Open Lower Abdominal Incisional Hernia Repair with Mesh and Excision Lysis of Adhesions(Not Applicable) - Guevara Powell MD, FACS The patient was brought into the operating theater supine position general endotracheal anesthesia Saucedo catheter was placed lower abdomen with including the both mons and upper thighs were prepped with Betadine Scrub solution properly draped timeout was had patient identified this point we made an incision approximately 10 cm so going through an old scar that was just cephalad to the symphysis pubis the patient had multiple abdominal surgeries including abdominoplasty hysterectomy hernia repairs [place] for we limited our dissection and incision to the point that we did not want to devascularized and compromised skin flaps once the incision was made subcutaneous tissue was strictly adherent we dissected down and freed it above and below both sides of the incision to the point that we were able then to dissect down further on both sides of the subcutaneous fatty tissue until we were able to get to an area that seem to be the abdominal wall which started more cephalad at this point we dissected out circumferentially the subcutaneous tissue from the abdominal wall and worked her way centrally significant amount of small bowel who is coming through the defect down to the subcutaneous tissue and took a significant amount of lyse all these adhesions trying to avoid an entering the bowel in 1 area there was a serosal tear that we repaired with 200 3-0 silk in the inferior aspect just anterior to the symphysis pubis we encountered mesh with loop of bowel stuck in that area the mesh initially I thought may have been used for [place] but it may have been used for an incisional hernia repair that she may have had we dissected down to the symphysis pubic exposing the inguinal ligament bilaterally and our dissection continued in the suprapubic area to a plane that we were sure if it was the bladder subcutaneous tissue was stayed lateral to it we freed it up from the symphysis pubis a few bleeders were ligated with 2-0 silk sutures and 3-0 silk sutures we divided some tissue coming off the symphysis pubis and ligated those with 3-0 silk sutures once we have completed the dissection which was tedious and prolonged we were left with a defect in the abdominal wall that was recurrent incisional hernia mesh was still placed and we avoided that in the lateral aspect on the right lower quadrant but is with palpated underneath the abdominal wall and cannot identify any other specific defects in our field the defect was approximately 8 cm x 4 cm I elected to bring 10 cm mesh surgery mesh circumferentially took 1 cm round then placed the mesh appropriately make sure that the mesh was properly placed with a smooth size intra-abdominal a we circumferentially sutured the mesh using 2-0 Prolene sutures to the edge to the edges of the hernial defect with 2-0 Prolene sutures in a continuous starting 1 at 12:00 1-6 o'clock and time at 3:00 and 9:00 the rough surface of the surgery mesh was overlapping her defect for approximately a centimeter or so once this had been completed I put more 2-[address] in [facility] alignment the area was checked hemostasis with use more local then we placed a 15 round Ricardo drain into the incision through a stab wound in the right lower quadrant drain was overlapping the mesh subcutaneous tissue was brought back together and over the mesh with 2-0 Vicryl sutures and 3-0 Vicryl interrupted for subcutaneous tissue and dinorah for skin edges dressing was applied at the end of the procedure the incision was this and flaps were viable the inferior aspect think was a little contused but viable Estimated blood loss 75 cc Addendum Vinay FORTE was present throughout the case and helped with retraction exposure and wound Spoke with daughter Bel at [phone] Surgeon Guevara Powell MD, FACS Wax Pattern Assembler pranav forte Estimated Blood Loss 75 Findings Consistent with Post-Op Diagnosis Specimens o Drains 15 Ricardo drain on top of the mass Indications Recurrent lower abdominal suprapubic incarcerated hernia Description of Procedure merda I attest to the content of the Intraoperative Record and any orders documented therein. Any exceptions are noted below.
[2022-09-20] MEDS ORDERED: hydrALAZINE HCL 20 MG/ML VIAL ONE (10:33)
[2022-09-20] MEDS ORDERED: hydrALAZINE HCL 20 MG/ML VIAL IV STA (10:34)
--- NOTE | 2022-09-20 10:52 | Anesthesiology Progress Note ---
Date of Service September 20, 2022 Anesthesia Post Procedure Vital Signs Vital Signs: Temp Pulse Pulse Resp BP Pulse Ox O2 Del Method 09/20/22 10:45 75 24 168/64 H 96 Room Air 09/20/22 10:35 36.4 C L 67 23 187/74 H 94 Room Air 09/20/22 10:25 65 24 186/60 H 100 Oxymask 09/20/22 10:15 67 24 188/78 H 99 Oxymask 09/20/22 10:05 72 26 H 184/78 H 100 Oxymask 09/20/22 09:55 74 20 189/87 H 100 Oxymask 09/20/22 09:48 36.6 C 82 20 194/91 H 100 Oxymask 09/20/22 05:50 36.9 C 71 20 167/67 H 94 Room Air O2 Flow Rate 09/20/22 10:45 09/20/22 10:35 09/20/22 10:25 2 09/20/22 10:15 2 09/20/22 10:05 4 09/20/22 09:55 6 09/20/22 09:48 8 09/20/22 05:50 Transfer of Care Handoff Completed per policy Notes Mental Status: alert / awake / arousable Patient Amnestic to Procedure: Yes Nausea / Vomiting: adequately controlled Pain: adequately controlled Airway Patency, RR, SpO2: stable & adequate BP & HR: stable & adequate Hydration State: stable & adequate Anesthetic Complications: no major complications apparent
[2022-09-20] MEDS ORDERED: INSULIN ASPART PER UNIT CHARGE SC SCH (11:30)
[2022-09-20] MEDS: ACETAMINOPHEN 1,000 MG/100 ML VIAL IV SCH ×2 (11:56→17:51)
[2022-09-20] MEDS: LACTATED RINGER'S 1,000 ML IV SCH ×2 (11:57→23:53)
--- NOTE | 2022-09-20 13:10 | Pharmacy Report ---
Pharmacy Glycemic Short Note 2 - Date of Service September 20, 2022 - Glycemic Short BSG Results (Last 24 hours): 09/20/22 09/20/22 09/20/22 05:58 09:51 11:11 POC Glucose 124 H 143 H 143 H OUTPATIENT ANTIDIABETIC REGIMEN: * Basaglar 4 units SC HS HbA1c: 6.9% (04/30/22), repeat ordered for 09/21/22) ASSESSMENT: * CR is an 81 year old female POD #0 s/p abdominal hernia repair * Preop BSG of 124 mg/dL, postop BSG of 143 mg/dL * Patient is currently NPO * Prior admission data suggests minimal insulin needs * Will start conservative basal scale this evening to provide patient's home basal at a maximum PLAN FOR INPATIENT GLYCEMIC CONTROL: * Basal insulin * Lantus 0-4 units SC HS * Bolus insulin * NovoLog per scale ACHS or Q6hrs while NPO * Goal Range: Low 120 mg/dL - High 150 mg/dL * Correction Factor: 35 mg/dL/unit * Nutritional / Prandial insulin per carb ratio of 1 unit per 12 grams CHO consumed
[2022-09-20] MEDS ORDERED: Nursing to Pharmacy Communication SCH (15:15)
[2022-09-20] MEDS: INSULIN ASPART PER UNIT CHARGE SC SCH (17:12)
[2022-09-20] MEDS ORDERED: LANTUS PER UNIT CHARGE SC SCH (21:00)
[2022-09-21] MEDS: ACETAMINOPHEN 1,000 MG/100 ML VIAL IV SCH ×3 (01:28→12:35)
[2022-09-21] MEDS: INSULIN ASPART PER UNIT CHARGE SC SCH ×4 (06:02→12:30)
[2022-09-21] MEDS ORDERED: LEVOTHYROXINE SODIUM 50 MCG TABLET PO SCH (06:30)
--- NOTE | 2022-09-21 07:10 | Surgery Progress Note ---
Date of Service September 21, 2022 Assessment & Plan (1) Ventral hernia: Plan: Operative findings were discussed with the patient including telling her significant dissection needed to be around the symphysis pubis to deliver the bladder from the suprapubic area With that I wanted to send the patient home with a Saucedo catheter but she lives alone and she feels that this is going to be a very difficult task to keep it therefore at this time we will remove the catheter if she voids and tolerating a diet she can be home today Will see her back in the office next Saturday and at that time remove the Ricardo drain I advised her to wear an abdominal binder when she is up and around Admission and Anticipated Discharge Date Admission Date: September 20, 2022 Subjective No complaints wanting to know when she would go home Physical Exam Physical Exam: Alert coherent hard of hearing The original dressing from surgery was taken off the Medipore tape is really sticking to the or have difficulty taking it off the incision looks good dinorah intact the inferior flap of the incision is pretty much unchanged from surgery a little ecchymotic but not ischemic the Ricardo drainage very minimal Saucedo catheter draining clear urine Results & Data Vital Signs (Past 12 Hours) Vital Signs Temp Pulse Resp BP Pulse Ox O2 Del Method 09/21/22 03:02 36.6 C 76 18 116/65 92 Room Air 09/20/22 23:49 36.9 C 69 16 95/54 L 94 Room Air 09/20/22 19:40 Room Air 09/20/22 19:30 37.1 C 75 16 107/64 94 Room Air
[2022-09-21 08:07] LABS: Basophils # (auto) 0.05 K/uL (0-0.2); Basophils % (auto) 0.5 %; Eosinophils # (auto) 0.25 K/uL (0-0.50); Eosinophils % (auto) 2.5 %; Hematocrit (blood only) 33.5 % (37.0-47.0); Hemoglobin 11.2 g/dl (12.0-16.0); Immature Granulocytes # (auto) 0.04 K/uL (0.01-0.20); Immature Granulocytes % (auto) 0.4 %; Lymphocytes # (auto) 0.83 K/uL (1.2-3.4); Lymphocytes % (auto) 8.4 %; Mean Corpuscular Hemoglobin 29.8 pg (25.0-34.0); Mean Corpuscular Hgb Conc 33.4 g/dL (32.0-36.0); Mean Corpuscular Volume 89.1 fL (80.0-100.0); Mean Platelet Volume 11.4 fL (9.4-12.4); Monocytes # (auto) 1.26 K/uL (0.11-0.59); Monocytes % (auto) 12.8 %; Neutrophils # (auto) 7.42 K/uL (1.40-6.50); Neutrophils % (auto) 75.4 %; Platelet Count 156 K/uL (130-400); RDW Coefficient of Variation 14.7 % (11.5-14.5); RDW Standard Deviation 47.7 fL (36.4-46.3); Red Blood Count 3.76 M/uL (4.20-5.40); White Blood Count 9.85 K/ul (4.8-10.8)
[2022-09-21 08:26] LABS: BUN Creatinine Ratio 17.9 (10-20); Calcium 8.6 mg/dl (8.6-10.3); Creatinine Clr Calc Pharmacy 27.4 ml/min; Est GFR (African American) 47.6 ml/min; Est GFR (Non-African American) 41.1 ml/min; Potassium 4.3 mmol/L (3.5-5.1)
[2022-09-21 08:37] LABS: Estimated Average Glucose 140 mg/dl; Hemoglobin A1C 6.5 % (4.5-5.6)
[2022-09-21] MEDS ORDERED: ESCITALOPRAM OXALATE 10 MG TAB PO SCH (09:00)
--- NOTE | 2022-09-21 12:42 | Pharmacy Report ---
Pharmacy Glycemic Short Note 2 - Date of Service September 21, 2022 - Glycemic Short BSG Results (Last 24 hours): 09/20/22 09/20/22 09/20/22 16:39 20:38 23:52 Glucose POC Glucose 114 H 118 H 108 H 09/21/22 09/21/22 09/21/22 05:54 07:31 07:38 Glucose 112 H POC Glucose 124 H 105 H 09/21/22 11:28 Glucose POC Glucose 134 H OUTPATIENT ANTIDIABETIC REGIMEN: * Basaglar 4 units SC HS HbA1c: 6.9% (04/30/22), 6.5% (09/21/22) ASSESSMENT: 09/21/22 * Patient's BSGs yesterday were [phone] and overnight were 108-124 mg/dL. * Today's BSGs are 105-134 mg/dL. * Patient received no insulin yesterday. * Patient received 1 unit of bolus for breakfast that she ate. At lunch, patient threw up. * Will d/c Lantus at this time due to fasting below goal range. * Continue conservative Novolog doses. BACKGROUND * CR is an 81 year old female POD #0 s/p abdominal hernia repair * Preop BSG of 124 mg/dL, postop BSG of 143 mg/dL * Patient is currently NPO * Prior admission data suggests minimal insulin needs * Will start conservative basal scale this evening to provide patient's home basal at a maximum PLAN FOR INPATIENT GLYCEMIC CONTROL: * Basal insulin * discontinue * Bolus insulin * NovoLog per scale ACHS or Q6hrs while NPO * Goal Range: Low 120 mg/dL - High 150 mg/dL * Correction Factor: 35 mg/dL/unit * Nutritional / Prandial insulin per carb ratio of 1 unit per 12 grams CHO consumed
--- NOTE | 2022-09-21 13:11 | XRay Report ---
XR chest 1V portable HISTORY: wheezing s/p choking on chicken COMPARISON: Chest CT 08/22/2022. FINDINGS: No pneumothorax. No pleural effusions. The cardiac silhouette remains mildly enlarged. Mild chronic interstitial thickening persists. Old, healed right-sided rib fractures again noted. There a re surgical clips within the left axilla. Bibasilar linear densities favor subsegmental atelectasis o r scarring. This remains unchanged. Otherwise, no new focal lung consolidations to suggest a pneumoni a. No evidence for pulmonary edema. Hazy appearance to the right lung base is likely due to overlappi ng soft tissue. IMPRESSION: No significant change compared to the prior study. No acute process. ACT 112: Negative or not required by law. Electronically signed by: Luis Lima M.D. 09/21/2022 1:09 PM
--- NOTE | 2022-10-01 18:01 | Discharge Summary ---
Date of Service September 21, 2022 Admission HPI Per Admitting Provider Ventral Hernia Principal Diagnosis Ventral hernia Discharge Exam Alert coherent and hard of hearing, (per surgical progress note) Discharge Data Allergies Allergy/AdvReac Type Severity Reaction Status Date / Time timolol [From Timoptic] Allergy Intermediate SWELLING Verified 09/25/22 14:22 OF THE EYES Penicillins AdvReac Unknown PT CLAIMS Verified 09/25/22 14:22 PCN DOESN'T WORK Procedures Performed Operation Date: 09/20/22 07:00 Actual Procedures p Open Lower Abdominal Incisional Hernia Repair with Mesh and Excision Lysis of Adhesions(Not Applicable) - Guevara Powell MD, FACS Hospital Course (1) Ventral hernia: You underwent an elective Ventral hernia repair on 09/20/[address] Powell. Due to the complexity of your hernia it was decided that you should be admitted to the hospital for one night post surgery. You were admitted and had a lee catheter and ricardo drain. The lee catheter was removed prior to your discharge on 09/21/22. You were instructed to see Dr. Powell in the office for Ricardo drain and staple removal. Total Time Total Time Spent Total Time Spent (In Minutes): 20 Discharge Plan Discharge Items Patient Disposition: Home - Self-Care Reason For Visit: Incisional Lower Abdominal Hernia Discharge Diagnosis: abdominal incisional hernia repair Activity: Per Instructions section Lifting: No more than 10 pounds Bathing Comment: may shower starting 09/21/22; no soaking in tubs/pools x 2 weeks Exercise/Sports: Wait until after follow-up appointment Driving/Machine Use: no driving while taking narcotics for pain Non-emergency contact: Surgeon Call non-emergency contact if: you have any medication questions, your pain is not controlled, your pain is worsening, you have a fever, your temperature is above 101.5, your wound has increased redness, your wound has increased drainage and your wound pain has increased Follow-up/Referrals: Tricia Shahid MD [Primary Care Provider] - Guevara Powell MD, FACS [Surgeon] - 09/25/22 2:15 pm (You have a follow up in clinic on Saturday09/25/22 at 2:15pm with Dr. Powell) Diet: Carb Consistent or DM2 Addtl Attending Provider Instructions: You have dinorah and gauze over your surgical incision. You may change the gauze in 24 hours and replace with clean gauze and tape. Continue to wear your abdominal binder while up and moving around Driving:No driving while taking narcotics for pain. Dr. Powell wants to see you on 09/25/22Saturday : Call office to schedule a follow appointment. You have a surgical drain in place that will be removed in the office next week. Please care for the drain as you have been educated prior to discharge from the hospital. Empty drain 2-3 x daily and record output. Keep drain to bulb suction. Do not take plain Tylenol while you are taking the narcotic Percocet for pain. They both contain Acetaminophen and you should not exceed >3grams of Acetaminophen within a 24 hour time period Pending Studies at Discharge: No Stand-Alone Forms: My [facility] Medications and DC Order Prescriptions: New oxycodone-acetaminophen [Percocet] 5-325 mg tablet 1 - 2 tab PO .q4-6h PRN (Reason: pain, for initial therapy, max 6 tabs per day) Qty: 5 0RF Continued (DME) pen needle, diabetic [BD Ultra-Fine Mini Pen Needle] 31 gauge x 3/16" needle See Rx Instructions .ROUTE .MEDSUPPLY Qty: 100 3RF Rx Instructions: Use 1 per day to inject insulin Lactobacillus acidophilus 2 billion cell tablet 2,000 mmu cells PO DAILY Qty: 30 6RF atorvastatin 10 mg tablet 10 mg PO QPM Qty: 90 3RF (DME) livongo 0 .Route .MEDSUPPLY docusate sodium 50 mg capsule 50 mg PO BID mycophenolate mofetil 500 mg tablet 500 mg PO BID minocycline 50 mg capsule 50 mg PO BID methenamine hippurate 1 gram tablet 1 g PO QAM ergocalciferol (vitamin D2) 1,250 mcg (50,000 unit) capsule 50,000 unit PO Q30D Rx Instructions: TAKES THE 1ST OF THE MONTH. escitalopram oxalate [Lexapro] 5 mg tablet 5 mg PO QAM levothyroxine [Tirosint] 50 mcg capsule 50 mcg PO QAM acetaminophen [Tylenol Extra Strength] 500 mg Tablet 500 mg PO UD PRN (Reason: Pain) insulin glargine [Basaglar KwikPen U-100 Insulin] 100 unit/mL (3 mL) insulin pen 0 unit SUBCUT HS Patient Comments: currently on hold per dr's instructions lidocaine [Lidoderm] 5 % adhesive patch,medicated 1 patch TOP DAILY PRN (Reason: pain) Qty: 15 0RF Rx Instructions: leave on most painful area for up to 12 hrs Discharge Orders: Discharge Order (Routine); Ordered 09/21/22 Ordered By: Vinay Ware Admission Data Admit Date/Time: 09/20/22 09:40 Attending Provider: Guevara Powell Admit Provider: Guevara Powell Primary Care Provider: Tricia Shahid V. Other Interventions: Discharge Summary Assessment (RN) Last Done: 09/21/22 14:38 Coding Level of Care Code 18751 IN/OBS DISCH 30 MIN/LESS Diagnoses Ventral hernia K43.9
== END 2022-09-21 15:12 | disposition home or self-care (01) | DRG 354 ==
LOC: ASU 05:29 → 3E 09:40 → INTOOBSV 09:40